=== PATIENT | female | born 1975 | race Caucasian/White ===

== ENCOUNTER 2017-08-13 14:15 | Inpatient (IN) | payer OTHER ==
[2017-08-13 16:15] VITALS: BMI 20.9
--- NOTE | 2017-08-13 17:10 | HP ---
COWS - Scale Resting Pulse: 1= [place] 81-100 Sweatin= Chills/Flushing Restless Observation: 1= Difficult to Sit Still Pupil Size: 1= Pupils >than Normal Bone or Joint Aches: 1= Mild Discomfort Runny Nose/ Eye Tearin= Runny Nose/Eyes GI Upset > 30mins: 3= Vomiting/Diarrhea Tremor Observation: 2= Slight Tremor Visible Yawning Observation: 1= 1-2x During Session Anxiety or Irritability: 2=Irritable/Anxious Goose Flesh Skin: 3=Piloerection COWS Score: 18 Admission ROS [facility] Chief Complaint: opioid withdrawal sx Allergies/Adverse Reactions: Allergies Allergy/AdvReac Type Severity Reaction Status Date / Time No Known Allergies Allergy Verified 08/13/17 16:38 History of Present Illness: 42 yo f repoerts taking oxycodoen/oxycontine, /oercicets [facility] [place] her went to the medical center so she is taking this opportunity to detox from opioid beaseu of severe withdrawal sx as an inpatient. first episode of treatment. PMHX anxiety, depression and insomnia thirsty, s/p breast surgery , s/p bresat lift this week on antibioitics. occasional smokng of cigarrettes Exam Limitations: No Limitations - Ebola screening Have you traveled outside of the country in the last 21 days: No Have you had contact with anyone from an Ebola affected area: No Have you been sick,other than usual withdrawal symptoms: No Do you have a fever: No - Review of Systems Constitutional: Chills, Diaphoresis, Night Sweats, Changes in sleep, Unintentional Wgt. Loss EENT: reports: Tearing, Nose Congestion Respiratory: reports: No Symptoms reported Cardiac: reports: No Symptoms Reported GI: reports: Diarrhea, Nausea, Poor Appetite, Poor Fluid Intake, Vomiting, Indigestion, Abdominal cramping : reports: No Symptoms Reported Musculoskeletal: reports: Back Pain, Joint Pain, Muscle Pain Integumentary: reports: Flushing, Sweating Neuro: reports: Headache, Tremors Endocrine: reports: Increased Thirst Psychiatric: reports: Judgement Intact, Mood/Affect Appropiate, Orientated x3, Anxious, Depressed Other Systems: Reviewed and Negative Patient History - Patient Medical History Hx Anemia: No Hx Asthma: No Hx Chronic Obstructive Pulmonary Disease (COPD): No Hx Cancer: No Hx Cardiac Disorders: No Hx Congestive Heart Failure: No Hx Hypertension: No Hx Hypercholesterolemia: No Hx Pacemaker: No HX Cerebrovascular Accident: No Hx Seizures: No Hx Dementia: No Hx Diabetes: No Hx Gastrointestinal Disorders: No Hx Genitourinary Disorders: No Hx Sexually Transmitted Disorders: No Hx Renal Disease (ESRD): No Hx Thyroid Disease: No Hx Human Immunodeficiency Virus (HIV): No Hx Hepatitis C: No Hx Depression: Yes Hx Suicide Attempt: No (no si at thsi time) Hx Bipolar Disorder: Yes Hx Schizophrenia: No - Patient Surgical History Past Surgical History: Yes Hx Neurologic Surgery: No Hx Cataract Extraction: No Hx Cardiac Surgery: No Hx Lung Surgery: No Hx Breast Surgery: Yes (COSMETIC - 08/10/17, was on antiiotics) Hx Breast Biopsy: No Hx Abdominal Surgery: No Hx Appendectomy: No Hx Cholecystectomy: No Hx Genitourinary Surgery: No Hx Section: No Hx Orthopedic Surgery: No Hx Hysterectomy: No Anesthesia Reaction: No - PPD History Previous Implant?: Yes Documented Results: Negative w/o proof PPD to be Administered?: Yes - Reproductive History Patient is a Female of Child Bearing Age (11 -55 yrs old): Yes Patient : No - Smoking Cessation Smoking history: Current every day smoker Have you smoked in the past 12 months: Yes Aproximately how many cigarettes per day: 5 Hx Chewing Tobacco Use: No Initiated information on smoking cessation: Yes 'Breaking Loose' booklet given: 08/13/17 - Substance & Tx. History Hx Alcohol Use: No Hx Substance Use: Yes Substance Use Type: Opiates, Prescribed Hx Substance Use Treatment: Yes (first episode) - Substances Abused Percocet Route: Oral Frequency: Daily Amount used: 80mg Age of first use: 40 Date of Last Use: 08/13/17 Oxycodone Route: Oral Frequency: Daily Amount used: 80mg Age of first use: 40 Date of Last Use: 08/12/17 Family Disease History - Family Disease History Family Disease History: Other: Father (h/o suicde or od, heroin) Admission Physical Exam BHS - Vital Signs Vital Signs: Vital Signs - 24 hr 08/13/17 16:14 Temperature 97 F L Pulse Rate 90 Respiratory 18 Rate Blood Pressure 139/88 - Physical General Appearance: Yes: Nourished, Appropriately Dressed, Disheveled, Mild Distress, Thin, Tremorous, Irritable, Sweating, Anxious HEENTM: Yes: EOMI, Hearing grossly Normal, Normocephalic, Normal Voice, [place], Pharynx Normal, Nasal Congestion, Rhinorrhea Respiratory: Yes: Within Normal Limits, Chest Non-Tender, Lungs Clear, Normal Breath Sounds, No Respiratory Distress, No Accessory Muscle Use Neck: Yes: Within Normal Limits, No masses,lesions,Nodules, Supple, Trachea in good position Breast: Yes: Breast Exam Deferred Cardiology: Yes: Within Normal Limits, Regular Rhythm, Regular Rate, S1, S2 Abdominal: Yes: Within Normal Limits, Normal Bowel Sounds, Non Tender, Flat, Soft, Increased Bowel Sounds Genitourinary: Yes: Within Normal Limits Back: Yes: Normal Inspection, Muscle Spasm Musculoskeletal: Yes: full range of Motion, Gait Steady, Pelvis Stable, Back pain, Muscle Pain Extremities: Yes: Normal Capillary Refill, Normal Range of Motion, Non-Tender, Tremors Neurological: Yes: entry level finance II-XII NML intact, Fully Oriented, Alert, Motor Strength 5/5, Normal Response, Depressed Affect Integumentary: Yes: Normal Color, Warm, Diaphoresis, Moist Lymphatic: Yes: Within Normal Limits - Addiitonal Findings: withdrawal - Diagnostic (1) Opioid dependence with withdrawal Current Visit: Yes Status: Acute (2) Dehydration Current Visit: Yes Status: Acute (3) Bipolar 1 disorder Current Visit: Yes Status: Acute (4) Insomnia Current Visit: Yes Status: Acute (5) Weight loss Current Visit: Yes Status: Acute BHS Breath Alcohol Content Breath Alcohol Content: 0 Urine Pregancy Test - Result Urine Test Results: Negative- NO Line Present Urine Drug Screen - Results Drug Screen Negative: No Urine Drug Screen Results: TCA-Tricyclic Antidepress, OXY-Oxycodone
[2017-08-13] MEDS ORDERED: P-EPHED 60MG/TRIPROLIDI 2.5MG TABLET PO PRN (17:12)
[2017-08-13] MEDS ORDERED: MAGNESIUM CITRATE 300 ML BOTTLE PO PRN (17:12)
[2017-08-13] MEDS ORDERED: MENTHOL/PHENOL 1 EACH UD MM PRN (17:12)
[2017-08-13] MEDS ORDERED: IBUPROFEN 400 MG TABLET (FP) PO PRN (17:12)
[2017-08-13] MEDS ORDERED: LOPERAMIDE HCL 2 MG CAPSULE PO PRN (17:12)
[2017-08-13] MEDS ORDERED: guaiFENesin/D-METHORPHAN HB 10 ML UNIT-DOSE CUPS PO PRN (17:12)
[2017-08-13] MEDS ORDERED: METHADONE HCL 10 MG TABLET (FOR DETOX USE ONLY) PO ONE ×2 (17:12→23:00)
[2017-08-13] MEDS ORDERED: MAG HYDROX/AL HYDROX/SIMETH 30 ML UNIT-DOSE CUP PO PRN (17:12)
[2017-08-13] MEDS ORDERED: NICOTINE POLACRILEX 2 MG GUM BC PRN (17:12)
[2017-08-13] MEDS ORDERED: ONDANSETRON *ODT* 4 MG TABLET SL ONE (17:15)
[2017-08-13] MEDS: NICOTINE 7 MG/24 HOURS TOPICAL PATCH TD SCH (18:48)
[2017-08-13] MEDS: PANTOPRAZOLE 40 MG TABLET (FP) PO SCH (18:50)
[2017-08-13] MEDS: diazePAM 5 MG TABLET PO PRN (18:50)
[2017-08-13] MEDS: CYCLOBENZAPRINE HCL 10 MG TABLET (FP) PO SCH (22:11)
[2017-08-13] MEDS: THIAMINE HCL 100 MG TABLET (FP) PO SCH (22:11)
[2017-08-13] MEDS: MELATONIN 5 MG TABLETS PO PRN (22:11)
[2017-08-13] MEDS: NAPROXEN 500 MG TABLET (FP) PO SCH (22:11)
[2017-08-13] MEDS: cloNIDine HCL 0.1 MG TABLET PO SCH (22:11)
[2017-08-14 01:27] LABS: URINE APPEARANCE CLEAR; URINE BILIRUBIN NEGATIVE (<2.0 mg/dL); URINE BLOOD NEGATIVE (NEGATIVE); URINE COLOR STRAW; URINE GLUCOSE (UA) NEGATIVE (NEGATIVE); URINE KETONE NEGATIVE (NEGATIVE); URINE LEUK ESTERASE NEGATIVE (NEGATIVE); URINE NITRITE NEGATIVE (NEGATIVE); URINE PROTEIN NEGATIVE (NEGATIVE); URINE UROBILINOGEN NEGATIVE mg/dL (0.2-1.0)
[2017-08-14] MEDS: diazePAM 5 MG TABLET PO PRN ×5 (01:40→19:49)
[2017-08-14] MEDS: ACETAMINOPHEN 325 MG TABLET (FP) PO PRN ×4 (01:41→19:45)
[2017-08-14] MEDS: CYCLOBENZAPRINE HCL 10 MG TABLET (FP) PO SCH ×3 (06:24→22:32)
[2017-08-14] MEDS ORDERED: METHADONE HCL 10 MG TABLET (FOR DETOX USE ONLY) PO ONE (10:00)
--- NOTE | 2017-08-14 10:09 | EKG ---
Test Reason : Blood Pressure : / mmHG Vent. Rate : 093 BPM Atrial Rate : 093 BPM P-R Int : 142 ms QRS Dur : 070 ms QT Int : 358 ms P-R-T Axes : 064 079 055 degrees QTc Int : 445 ms NORMAL SINUS RHYTHM NORMAL ECG NO PREVIOUS ECGS AVAILABLE Confirmed by ARPAN RUVALCABA MD ([id number]) on 08/14/2017 10:08:24 AM Referred By: Confirmed By:ARPAN RUVALCABA MD
[2017-08-14] MEDS: NAPROXEN 500 MG TABLET (FP) PO SCH ×2 (10:20→22:32)
[2017-08-14] MEDS: PRENATAL VITAMINS W/ FOLIC ACID TABLET (FP) PO SCH (10:20)
[2017-08-14] MEDS: PANTOPRAZOLE 40 MG TABLET (FP) PO SCH (10:20)
[2017-08-14] MEDS: cloNIDine HCL 0.1 MG TABLET PO SCH ×2 (10:22→22:33)
[2017-08-14] MEDS: NICOTINE 7 MG/24 HOURS TOPICAL PATCH TD SCH (10:22)
[2017-08-14 10:28] LABS: ALBUMIN 2.9 g/dl (3.4-5.0); ANION GAP 10 (8-16); BLOOD UREA NITROGEN 14 mg/dL (7-18); CALCIUM 8.3 mg/dL (8.5-10.1); CHLORIDE 105 mmol/L (98-107); CO2 26 mmol/L (21-32); GLUCOSE,RANDOM 106 mg/dL (74-106); POTASSIUM 3.8 mmol/L (3.5-5.1); SODIUM 141 mmol/L (136-145)
[2017-08-14 10:30] LABS: HEMATOCRIT 30.5 % (32.4-45.2); HEMOGLOBIN 10.3 GM/dL (10.7-15.3); MCH 31.8 pg (25.7-33.7); MCHC 33.7 g/dl (32.0-36.0); MEAN CELL VOLUME 94.5 fl (80-96); MEAN PLT VOLUME 9.8 fl (7.5-11.1); PLATELET COUNT 226 K/MM3 (134-434); RBC 3.22 M/mm3 (3.60-5.2); RDW 12.7 % (11.6-15.6); WHITE BLOOD COUNT 7.2 K/mm3 (4.0-10.0)
[2017-08-14 10:32] LABS: ALK PHOS 68 U/L (45-117); BILIRUBIN,TOTAL 0.1 mg/dL (0.2-1.0); CREATININE 0.5 mg/dL (0.55-1.02); SGOT/AST 15 U/L (15-37); SGPT/ALT 16 U/L (12-78); TOT PROT 5.7 g/dl (6.4-8.2)
--- NOTE | 2017-08-14 10:42 | PN ---
BHS COWS - Scale Resting Pulse: 1= [place] 81-100 Sweatin= Chills/Flushing Restless Observation: 1= Difficult to Sit Still Pupil Size: 1= Pupils >than Normal Bone or Joint Aches: 2= Severe Diffuse Aches Runny Nose/ Eye Tearin= Nasal Congestion GI Upset > 30mins: 2= Nausea/Diarrhea Tremor Observation of Outstretched Hands: 1= Tremor [place], Not Seen Yawning Observation: 0= None Anxiety or Irritability: 1=Feels Anxious/Irritable Goose Flesh Skin: 0=Smooth Skin COWS Score: 11 BHS Progress Note (SOAP) Subjective: interrupted sleep, sweats, shakes, nausea, bodyaches Objective: 08/14/17 10:38 Vital Signs Temperature 97.5 F L 08/14/17 06:00 Pulse Rate 77 08/14/17 06:00 Respiratory Rate 18 08/14/17 06:00 Blood Pressure 100/61 08/14/17 06:00 O2 Sat by Pulse Oximetry (%) Laboratory Tests 08/14/17 08/14/17 00:35 08:00 Sodium 141 Potassium 3.8 Chloride 105 Carbon Dioxide 26 Anion Gap 10 BUN 14 Creatinine 0.5 L Creat Clearance w eGFR > 60 Random Glucose 106 Calcium 8.3 L Total Bilirubin 0.1 L AST 15 ALT 16 Alkaline Phosphatase 68 Total Protein 5.7 L Albumin 2.9 L Urine Color Straw Urine Appearance Clear Urine pH 7.0 Ur Specific [place] 1.005 Urine Protein Negative Urine Glucose (UA) Negative Urine Ketones Negative Urine Blood Negative Urine Nitrite Negative Urine Bilirubin Negative Urine Urobilinogen Negative Ur Leukocyte Esterase Negative pt aox3 sitting up in bed eatting breakfast ad breast bandages over areolar Assessment: 08/14/17 10:40 withdrawal sxs ad breast augmentation Plan: cont. detox increase fluids motrin prn report any d/c, redness or pain from breast immediately
--- NOTE | 2017-08-14 19:54 | CONSULT ---
[facility] Psychiatric Consult - Data Date of interview: 08/14/17 Admission source: [facility] Identifying data: First admission to [facility] for this 42 y/o [place] female seeking detox treatment on for opiate dependence.Patient is single,a mother of one,homeless,unemployed and supported on SSI benefits. Substance Abuse History: Patient admits to heavy history of percocet abuse. Details in current [facility] report as shown in the following : Smoking history: Current every day smoker. Have you smoked in the past 12 months: Yes. Aproximately how many cigarettes per day: 5. Hx Chewing Tobacco Use: No. Initiated information on smoking cessation: Yes. 'Breaking Loose' booklet given : 08/13/17. - Substance & Tx. History. Hx Alcohol Use: No. Hx Substance Use: Yes. Substance Use Type: Opiates, Prescribed. Hx Substance Use Treatment: Yes (first episode). - Substances Abused. Percocet. Route: Oral. Frequency: Daily. Amount used: 80mg. Age of first use: 40. Date of Last Use: 08/13/17. Oxycodone. Route: Oral. Frequency: Daily. Amount used: 80mg. Age of first use: 40. Date of Last Use: 08/12/17 Medical History: GERD and a recent history of cosmetic surgery (breast) on . Psychiatric History: Patient denies history of psychiatric hospitalizations.Used to see a psychiatrist at the [facility] OPD clinic.Last seen there 3-4 months ago.Totally lost to follow-up.Ms Montero indicates that she " used to be " prescribed seroquel,depakote and sertraline.Diagnosis endorsed : MDD.Patient denies history of suicide attempts. Physical/Sexual Abuse/Trauma History: Patient denies history of abuse. Additional Comment: Urine Drug Screen Results: TCA-Tricyclic Antidepressant, OXY -Oxycodone.Noted. Mental Status Exam - Mental Status Exam Alert and Oriented to: Time, Place, Person Cognitive Function: Good Patient Appearance: Well Groomed Mood: Nervous, Anxious Affect: Mood Congruent Patient Behavior: Fatigued, Appropriate, Cooperative Speech Pattern: Clear (chinese-speaking) Voice Loudness: Normal Thought Process: Intact, Goal Oriented Thought Disorder: Not Present Hallucinations: Denies Suicidal Ideation: Denies Homicidal Ideation: Denies Insight/Judgement: Poor Sleep: Poorly, Difficulty falling asleep Appetite: Fair Muscle strength/Tone: Normal Gait/Station: Normal Psychiatric Findings - Problem List ([place] 1, 2,3) (1) Opioid dependence with withdrawal Current Visit: Yes Status: Acute (2) Nicotine dependence Current Visit: Yes Status: Acute (3) Insomnia Current Visit: Yes Status: Acute (4) Bipolar disorder Current Visit: No Status: Chronic Comment: As per self-report.Off medications for months. - Initial Treatment Plan Initial Treatment Plan: Psychoeducation.Detoxification in progress.Sleep hygiene.Will resume seroquel at the dose of 50 mg po hs to address insomnia ( patient's specific request).Side effects/benefits discussed with the patient.Consent given (verbal).Observation.Patient is advised to resume OPD care with [facility].
[2017-08-14] MEDS: hydrOXYzine PAMOATE 50 MG CAPSULE (FP) PO PRN (22:32)
[2017-08-14] MEDS: QUEtiapine FUMARATE 50 MG TABLET PO SCH (22:32)
[2017-08-14] MEDS: THIAMINE HCL 100 MG TABLET (FP) PO SCH (22:32)
[2017-08-14] MEDS: MELATONIN 5 MG TABLETS PO PRN (22:33)
[2017-08-15] MEDS: diazePAM 5 MG TABLET PO PRN ×5 (00:46→22:20)
[2017-08-15] MEDS: ACETAMINOPHEN 325 MG TABLET (FP) PO PRN (00:48)
[2017-08-15] MEDS: CYCLOBENZAPRINE HCL 10 MG TABLET (FP) PO SCH ×3 (06:42→22:20)
[2017-08-15] MEDS ORDERED: METHADONE HCL 5 MG TABLET (FOR DETOX USE ONLY) PO ONE (10:00)
[2017-08-15] MEDS: NAPROXEN 500 MG TABLET (FP) PO SCH (10:29)
[2017-08-15] MEDS: PANTOPRAZOLE 40 MG TABLET (FP) PO SCH (10:29)
[2017-08-15] MEDS: NICOTINE 7 MG/24 HOURS TOPICAL PATCH TD SCH (10:29)
[2017-08-15] MEDS: cloNIDine HCL 0.1 MG TABLET PO SCH ×2 (10:29→22:20)
[2017-08-15] MEDS: PRENATAL VITAMINS W/ FOLIC ACID TABLET (FP) PO SCH (10:29)
[2017-08-15] MEDS ORDERED: IBUPROFEN 400 MG TABLET (FP) PO PRN (12:06)
[2017-08-15] MEDS: CEPHALEXIN MONOHYDRATE 500 MG CAPSULE (UD) PO SCH ×2 (14:23→23:25)
--- NOTE | 2017-08-15 15:31 | PN ---
BHS COWS - Scale Resting Pulse: 0= [place] 80 or Below Sweatin= Chills/Flushing Restless Observation: 3= Extraneous Movement Pupil Size: 1= Pupils >than Normal Bone or Joint Aches: 2= Severe Diffuse Aches Runny Nose/ Eye Tearin= Runny Nose/Eyes GI Upset > 30mins: 3= Vomiting/Diarrhea Tremor Observation of Outstretched Hands: 2= Slight Tremor Visible Yawning Observation: 1= 1-2x During Session Anxiety or Irritability: 2=Irritable/Anxious Goose Flesh Skin: 0=Smooth Skin COWS Score: 17 S Progress Note (SOAP) Subjective: ALERT,IRRITABLE,ANXIOUS,INTERRUPTED SLEEP,TREMOR,PAIN IN THE BODY AND BACK, SWELLING WITH PAIN RIGHT AXILLA Objective: 08/15/17 15:30 Vital Signs Temperature 97.1 F L 08/15/17 15:17 Pulse Rate 78 08/15/17 15:17 Respiratory Rate 16 08/15/17 15:17 Blood Pressure 102/69 08/15/17 15:17 O2 Sat by Pulse Oximetry (%) Laboratory Last Values WBC 7.2 K/mm3 (4.0-10.0) 08/14/17 08:00 RBC 3.22 M/mm3 (3.60-5.2) L 08/14/17 08:00 Hgb 10.3 GM/dL (10.7-15.3) L 08/14/17 08:00 Hct 30.5 % (32.4-45.2) L 08/14/17 08:00 MCV 94.5 fl (80-96) 08/14/17 08:00 MCH 31.8 pg (25.7-33.7) 08/14/17 08:00 MCHC 33.7 g/dl (32.0-36.0) 08/14/17 08:00 RDW 12.7 % (11.6-15.6) 08/14/17 08:00 Plt Count 226 K/MM3 (134-434) 08/14/17 08:00 MPV 9.8 fl (7.5-11.1) 08/14/17 08:00 Sodium 141 mmol/L (136-145) 08/14/17 08:00 Potassium 3.8 mmol/L (3.5-5.1) 08/14/17 08:00 Chloride 105 mmol/L (98-107) 08/14/17 08:00 Carbon Dioxide 26 mmol/L (21-32) 08/14/17 08:00 Anion Gap 10 (8-16) 08/14/17 08:00 BUN 14 mg/dL (7-18) 08/14/17 08:00 Creatinine 0.5 mg/dL (0.55-1.02) L 08/14/17 08:00 Creat Clearance w eGFR > 60 (>60) 08/14/17 08:00 Random Glucose 106 mg/dL (74-106) 08/14/17 08:00 Calcium 8.3 mg/dL (8.5-10.1) L 08/14/17 08:00 Total Bilirubin 0.1 mg/dL (0.2-1.0) L 08/14/17 08:00 AST 15 U/L (15-37) 08/14/17 08:00 ALT 16 U/L (12-78) 08/14/17 08:00 Alkaline Phosphatase 68 U/L (45-117) 08/14/17 08:00 Total Protein 5.7 g/dl (6.4-8.2) L 08/14/17 08:00 Albumin 2.9 g/dl (3.4-5.0) L 08/14/17 08:00 Urine Color Straw 08/14/17 00:35 Urine Appearance Clear 08/14/17 00:35 Urine pH 7.0 (5.0-8.0) 08/14/17 00:35 Ur Specific [place] 1.005 (1.001-1.035) 08/14/17 00:35 Urine Protein Negative (NEGATIVE) 08/14/17 00:35 Urine Glucose (UA) Negative (NEGATIVE) 08/14/17 00:35 Urine Ketones Negative (NEGATIVE) 08/14/17 00:35 Urine Blood Negative (NEGATIVE) 08/14/17 00:35 Urine Nitrite Negative (NEGATIVE) 08/14/17 00:35 Urine Bilirubin Negative (<2.0 mg/dL) 08/14/17 00:35 Urine Urobilinogen Negative mg/dL (0.2-1.0) 08/14/17 00:35 Ur Leukocyte Esterase Negative (NEGATIVE) 08/14/17 00:35 RPR Titer Nonreactive (NONREACTIVE) 08/14/17 08:00 HIV 1&2 Antibody Screen Negative 08/14/17 07:00 HIV P24 Antigen Negative 08/14/17 07:00 Assessment: 08/15/17 15:31 WITHDRAWAL SYMPTOM Plan: CONTINUE DETOX
--- NOTE | 2017-08-15 15:37 | PN ---
S Progress Note Note: PLEASE DISCARD THE SWELLING OF RIGHT AXILLA AND ABSCESS OF RIGHT AXILLA BELONG TO OTHER PATIENT PATIENT HAS COSMATIC SURGERY BOTH BREASTS
[2017-08-15] MEDS: MELATONIN 5 MG TABLETS PO PRN (22:20)
[2017-08-15] MEDS: QUEtiapine FUMARATE 50 MG TABLET PO SCH (22:20)
[2017-08-15] MEDS: THIAMINE HCL 100 MG TABLET (FP) PO SCH (22:20)
[2017-08-16] MEDS: CYCLOBENZAPRINE HCL 10 MG TABLET (FP) PO SCH ×3 (06:38→22:22)
[2017-08-16] MEDS: CEPHALEXIN MONOHYDRATE 500 MG CAPSULE (UD) PO SCH ×3 (06:38→22:22)
[2017-08-16] MEDS: diazePAM 5 MG TABLET PO PRN ×2 (06:41→15:42)
[2017-08-16] MEDS ORDERED: METHADONE HCL 5 MG TABLET (FOR DETOX USE ONLY) PO ONE (10:00)
[2017-08-16] MEDS: PANTOPRAZOLE 40 MG TABLET (FP) PO SCH (10:12)
[2017-08-16] MEDS: NICOTINE 7 MG/24 HOURS TOPICAL PATCH TD SCH (10:12)
[2017-08-16] MEDS: PRENATAL VITAMINS W/ FOLIC ACID TABLET (FP) PO SCH (10:12)
[2017-08-16] MEDS: cloNIDine HCL 0.1 MG TABLET PO SCH ×2 (10:12→22:22)
--- NOTE | 2017-08-16 14:16 | PN ---
BHS Progress Note (SOAP) Subjective: joint pain muscle ache sweat tremor restlessness trouble sleeping anxiety Objective: 08/16/17 14:15 Vital Signs Temperature 97.7 F 08/16/17 13:18 Pulse Rate 79 08/16/17 13:18 Respiratory Rate 20 08/16/17 13:18 Blood Pressure 106/74 08/16/17 13:18 O2 Sat by Pulse Oximetry (%) Laboratory Last Values WBC 7.2 K/mm3 (4.0-10.0) 08/14/17 08:00 RBC 3.22 M/mm3 (3.60-5.2) L 08/14/17 08:00 Hgb 10.3 GM/dL (10.7-15.3) L 08/14/17 08:00 Hct 30.5 % (32.4-45.2) L 08/14/17 08:00 MCV 94.5 fl (80-96) 08/14/17 08:00 MCH 31.8 pg (25.7-33.7) 08/14/17 08:00 MCHC 33.7 g/dl (32.0-36.0) 08/14/17 08:00 RDW 12.7 % (11.6-15.6) 08/14/17 08:00 Plt Count 226 K/MM3 (134-434) 08/14/17 08:00 MPV 9.8 fl (7.5-11.1) 08/14/17 08:00 Sodium 141 mmol/L (136-145) 08/14/17 08:00 Potassium 3.8 mmol/L (3.5-5.1) 08/14/17 08:00 Chloride 105 mmol/L (98-107) 08/14/17 08:00 Carbon Dioxide 26 mmol/L (21-32) 08/14/17 08:00 Anion Gap 10 (8-16) 08/14/17 08:00 BUN 14 mg/dL (7-18) 08/14/17 08:00 Creatinine 0.5 mg/dL (0.55-1.02) L 08/14/17 08:00 Creat Clearance w eGFR > 60 (>60) 08/14/17 08:00 Random Glucose 106 mg/dL (74-106) 08/14/17 08:00 Calcium 8.3 mg/dL (8.5-10.1) L 08/14/17 08:00 Total Bilirubin 0.1 mg/dL (0.2-1.0) L 08/14/17 08:00 AST 15 U/L (15-37) 08/14/17 08:00 ALT 16 U/L (12-78) 08/14/17 08:00 Alkaline Phosphatase 68 U/L (45-117) 08/14/17 08:00 Total Protein 5.7 g/dl (6.4-8.2) L 08/14/17 08:00 Albumin 2.9 g/dl (3.4-5.0) L 08/14/17 08:00 Urine Color Straw 08/14/17 00:35 Urine Appearance Clear 08/14/17 00:35 Urine pH 7.0 (5.0-8.0) 08/14/17 00:35 Ur Specific [place] 1.005 (1.001-1.035) 08/14/17 00:35 Urine Protein Negative (NEGATIVE) 08/14/17 00:35 Urine Glucose (UA) Negative (NEGATIVE) 08/14/17 00:35 Urine Ketones Negative (NEGATIVE) 08/14/17 00:35 Urine Blood Negative (NEGATIVE) 08/14/17 00:35 Urine Nitrite Negative (NEGATIVE) 08/14/17 00:35 Urine Bilirubin Negative (<2.0 mg/dL) 08/14/17 00:35 Urine Urobilinogen Negative mg/dL (0.2-1.0) 08/14/17 00:35 Ur Leukocyte Esterase Negative (NEGATIVE) 08/14/17 00:35 RPR Titer Nonreactive (NONREACTIVE) 08/14/17 08:00 HIV 1&2 Antibody Screen Negative 08/14/17 07:00 HIV P24 Antigen Negative 08/14/17 07:00 lab noted Assessment: 08/16/17 14:15 withdrawal sx Plan: continue detox
[2017-08-16] MEDS: ACETAMINOPHEN 325 MG TABLET (FP) PO PRN (15:47)
[2017-08-16] MEDS: hydrOXYzine PAMOATE 50 MG CAPSULE (FP) PO PRN (18:12)
[2017-08-16] MEDS: THIAMINE HCL 100 MG TABLET (FP) PO SCH (22:22)
[2017-08-16] MEDS: MELATONIN 5 MG TABLETS PO PRN (22:22)
[2017-08-16] MEDS: QUEtiapine FUMARATE 50 MG TABLET PO SCH (22:22)
[2017-08-16] MEDS: MAGNESIUM HYDROX 2400MG/30ML ORAL SUSPENSION 30 ML CUP PO PRN (22:42)
[2017-08-17] MEDS: MAGNESIUM HYDROX 2400MG/30ML ORAL SUSPENSION 30 ML CUP PO PRN (04:36)
[2017-08-17] MEDS: CEPHALEXIN MONOHYDRATE 500 MG CAPSULE (UD) PO SCH ×3 (05:23→22:21)
[2017-08-17] MEDS: CYCLOBENZAPRINE HCL 10 MG TABLET (FP) PO SCH ×3 (05:23→22:21)
[2017-08-17] MEDS ORDERED: SODIUM PHOSPHATE/NA BIPHOS 133 ML ENEMA PR ONE (08:49)
[2017-08-17] MEDS ORDERED: METHADONE HCL 10 MG TABLET (FOR DETOX USE ONLY) PO ONE (10:00)
--- NOTE | 2017-08-17 10:39 | PN ---
S Progress Note (SOAP) Subjective: reported feeling better, no body ache sleep throughout the night constipation x days, denies nausea no vomiting appetites as usual Objective: 08/17/17 10:33 Vital Signs Temperature 99.1 F 08/17/17 09:13 Pulse Rate 95 H 08/17/17 09:13 Respiratory Rate 18 08/17/17 09:13 Blood Pressure 109/67 08/17/17 09:13 O2 Sat by Pulse Oximetry (%) Laboratory Last Values WBC 7.2 K/mm3 (4.0-10.0) 08/14/17 08:00 RBC 3.22 M/mm3 (3.60-5.2) L 08/14/17 08:00 Hgb 10.3 GM/dL (10.7-15.3) L 08/14/17 08:00 Hct 30.5 % (32.4-45.2) L 08/14/17 08:00 MCV 94.5 fl (80-96) 08/14/17 08:00 MCH 31.8 pg (25.7-33.7) 08/14/17 08:00 MCHC 33.7 g/dl (32.0-36.0) 08/14/17 08:00 RDW 12.7 % (11.6-15.6) 08/14/17 08:00 Plt Count 226 K/MM3 (134-434) 08/14/17 08:00 MPV 9.8 fl (7.5-11.1) 08/14/17 08:00 Sodium 141 mmol/L (136-145) 08/14/17 08:00 Potassium 3.8 mmol/L (3.5-5.1) 08/14/17 08:00 Chloride 105 mmol/L (98-107) 08/14/17 08:00 Carbon Dioxide 26 mmol/L (21-32) 08/14/17 08:00 Anion Gap 10 (8-16) 08/14/17 08:00 BUN 14 mg/dL (7-18) 08/14/17 08:00 Creatinine 0.5 mg/dL (0.55-1.02) L 08/14/17 08:00 Creat Clearance w eGFR > 60 (>60) 08/14/17 08:00 Random Glucose 106 mg/dL (74-106) 08/14/17 08:00 Calcium 8.3 mg/dL (8.5-10.1) L 08/14/17 08:00 Total Bilirubin 0.1 mg/dL (0.2-1.0) L 08/14/17 08:00 AST 15 U/L (15-37) 08/14/17 08:00 ALT 16 U/L (12-78) 08/14/17 08:00 Alkaline Phosphatase 68 U/L (45-117) 08/14/17 08:00 Total Protein 5.7 g/dl (6.4-8.2) L 08/14/17 08:00 Albumin 2.9 g/dl (3.4-5.0) L 08/14/17 08:00 Urine Color Straw 08/14/17 00:35 Urine Appearance Clear 08/14/17 00:35 Urine pH 7.0 (5.0-8.0) 08/14/17 00:35 Ur Specific [place] 1.005 (1.001-1.035) 08/14/17 00:35 Urine Protein Negative (NEGATIVE) 08/14/17 00:35 Urine Glucose (UA) Negative (NEGATIVE) 08/14/17 00:35 Urine Ketones Negative (NEGATIVE) 08/14/17 00:35 Urine Blood Negative (NEGATIVE) 08/14/17 00:35 Urine Nitrite Negative (NEGATIVE) 08/14/17 00:35 Urine Bilirubin Negative (<2.0 mg/dL) 08/14/17 00:35 Urine Urobilinogen Negative mg/dL (0.2-1.0) 08/14/17 00:35 Ur Leukocyte Esterase Negative (NEGATIVE) 08/14/17 00:35 RPR Titer Nonreactive (NONREACTIVE) 08/14/17 08:00 HIV 1&2 Antibody Screen Negative 08/14/17 07:00 HIV P24 Antigen Negative 08/14/17 07:00 lab noted continue MOM as needed abdomen soft non tenderness, + bowel sound x 4, denies back pain, ambulating on mun[address] way freely, social with peers 08/17/17 10:39 Assessment: 08/17/17 10:40 mild opiate withdrawal sx constipation Plan: medically supervised detox continue MOM prn enema x 1 patient tolerated well, encourage clear liquid x 4 hours increase oral fluid continue monitoring
[2017-08-17] MEDS: NICOTINE 7 MG/24 HOURS TOPICAL PATCH TD SCH (10:51)
[2017-08-17] MEDS: PRENATAL VITAMINS W/ FOLIC ACID TABLET (FP) PO SCH (10:52)
[2017-08-17] MEDS: PANTOPRAZOLE 40 MG TABLET (FP) PO SCH (10:52)
[2017-08-17] MEDS: cloNIDine HCL 0.1 MG TABLET PO SCH ×2 (10:52→22:21)
[2017-08-17] MEDS: hydrOXYzine PAMOATE 50 MG CAPSULE (FP) PO PRN ×2 (13:25→22:21)
[2017-08-17] MEDS: THIAMINE HCL 100 MG TABLET (FP) PO SCH (22:20)
[2017-08-17] MEDS: QUEtiapine FUMARATE 50 MG TABLET PO SCH (22:21)
[2017-08-17] MEDS: ACETAMINOPHEN 325 MG TABLET (FP) PO PRN (22:21)
[2017-08-18] MEDS: CEPHALEXIN MONOHYDRATE 500 MG CAPSULE (UD) PO SCH (05:47)
[2017-08-18] MEDS: CYCLOBENZAPRINE HCL 10 MG TABLET (FP) PO SCH (05:47)
[2017-08-18] MEDS ORDERED: METHADONE HCL 5 MG TABLET (FOR DETOX USE ONLY) PO ONE (06:00)
[2017-08-18 06:12] VITALS: BP 98/61; PULSE 86; TEMP 96.8
--- NOTE | 2017-08-18 09:51 | PN ---
S Progress Note (SOAP) Subjective: ALERT,NO COMPLAINT Objective: 08/18/17 09:49 Vital Signs Temperature 96.8 F L 08/18/17 06:00 Pulse Rate 86 08/18/17 06:00 Respiratory Rate 16 08/18/17 06:00 Blood Pressure 98/61 08/18/17 06:00 O2 Sat by Pulse Oximetry (%) Assessment: 08/18/17 09:49 DETOX COMPLETED,NO WITHDRAWAL SYMPTOM Plan: DISCHARGE TODAY,FOLLOW UP WITH AFTER CARE PROGRAM ARRANGEMENT
--- NOTE | 2017-08-18 09:55 | DS ---
[facility] Detox Discharge Summary Admission Date: 08/13/17 Discharge Date: 08/18/17 - History Present History: Opioid Dependence Additional Comments: FOLLOW UP WITH AFTER CARE PROGRAM ARRANGEMENT Pertinent Past History: S/P BILATERAL BREAST IMPLANT BIPOLAR DISORDER - Physical Exam Results Vital Signs: Vital Signs Temperature 96.8 F L 08/18/17 06:00 Pulse Rate 86 08/18/17 06:00 Respiratory Rate 16 08/18/17 06:00 Blood Pressure 98/61 08/18/17 06:00 O2 Sat by Pulse Oximetry (%) Pertinent Admission Physical Exam Findings: WITHDRAWAL SIGNS AND SYMPTOM Vital Signs Temperature 96.8 F L 08/18/17 06:00 Pulse Rate 86 08/18/17 06:00 Respiratory Rate 16 08/18/17 06:00 Blood Pressure 98/61 08/18/17 06:00 O2 Sat by Pulse Oximetry (%) Laboratory Last Values WBC 7.2 K/mm3 (4.0-10.0) 08/14/17 08:00 RBC 3.22 M/mm3 (3.60-5.2) L 08/14/17 08:00 Hgb 10.3 GM/dL (10.7-15.3) L 08/14/17 08:00 Hct 30.5 % (32.4-45.2) L 08/14/17 08:00 MCV 94.5 fl (80-96) 08/14/17 08:00 MCH 31.8 pg (25.7-33.7) 08/14/17 08:00 MCHC 33.7 g/dl (32.0-36.0) 08/14/17 08:00 RDW 12.7 % (11.6-15.6) 08/14/17 08:00 Plt Count 226 K/MM3 (134-434) 08/14/17 08:00 MPV 9.8 fl (7.5-11.1) 08/14/17 08:00 Sodium 141 mmol/L (136-145) 08/14/17 08:00 Potassium 3.8 mmol/L (3.5-5.1) 08/14/17 08:00 Chloride 105 mmol/L (98-107) 08/14/17 08:00 Carbon Dioxide 26 mmol/L (21-32) 08/14/17 08:00 Anion Gap 10 (8-16) 08/14/17 08:00 BUN 14 mg/dL (7-18) 08/14/17 08:00 Creatinine 0.5 mg/dL (0.55-1.02) L 08/14/17 08:00 Creat Clearance w eGFR > 60 (>60) 08/14/17 08:00 Random Glucose 106 mg/dL (74-106) 08/14/17 08:00 Calcium 8.3 mg/dL (8.5-10.1) L 08/14/17 08:00 Total Bilirubin 0.1 mg/dL (0.2-1.0) L 08/14/17 08:00 AST 15 U/L (15-37) 08/14/17 08:00 ALT 16 U/L (12-78) 08/14/17 08:00 Alkaline Phosphatase 68 U/L (45-117) 08/14/17 08:00 Total Protein 5.7 g/dl (6.4-8.2) L 08/14/17 08:00 Albumin 2.9 g/dl (3.4-5.0) L 08/14/17 08:00 Urine Color Straw 08/14/17 00:35 Urine Appearance Clear 08/14/17 00:35 Urine pH 7.0 (5.0-8.0) 08/14/17 00:35 Ur Specific [place] 1.005 (1.001-1.035) 08/14/17 00:35 Urine Protein Negative (NEGATIVE) 08/14/17 00:35 Urine Glucose (UA) Negative (NEGATIVE) 08/14/17 00:35 Urine Ketones Negative (NEGATIVE) 08/14/17 00:35 Urine Blood Negative (NEGATIVE) 08/14/17 00:35 Urine Nitrite Negative (NEGATIVE) 08/14/17 00:35 Urine Bilirubin Negative (<2.0 mg/dL) 08/14/17 00:35 Urine Urobilinogen Negative mg/dL (0.2-1.0) 08/14/17 00:35 Ur Leukocyte Esterase Negative (NEGATIVE) 08/14/17 00:35 RPR Titer Nonreactive (NONREACTIVE) 08/14/17 08:00 HIV 1&2 Antibody Screen Negative 08/14/17 07:00 HIV P24 Antigen Negative 08/14/17 07:00 - Treatment Hospital Course: Detox Protocol Followed, Detoxed Safely, Responded well, Discharged Condition Good Patient has Accepted a Rehab Referral to: DECLINED - Medication Discharge Medications: Ambulatory Orders Divalproex [Depakote -] 500 mg PO BID 08/13/17 Ibuprofen [Motrin -] 800 mg PO TID 08/13/17 Sertraline HCl [Zoloft -] 50 mg PO DAILY 08/13/17 Zolpidem Tartrate [Ambien] 10 mg PO HS 08/13/17 - Diagnosis (1) Opioid dependence with withdrawal Current Visit: Yes Status: Acute (2) Weight loss Current Visit: Yes Status: Acute (3) H/O bilateral breast implants Current Visit: Yes Status: Acute (4) Bipolar 1 disorder Current Visit: Yes Status: Chronic - AMA Did Patient Leave Against Medical Advice: No
[2017-08-18] MEDS ORDERED: IBUPROFEN 600 MG TABLET (FP) PO PRN (10:13)
--- NOTE | 2017-08-18 10:22 | PN ---
[facility] Progress Note Note: PATIENT COMPLAINT OF CONSTIPATION USE TO TAKE SENNA 2 TABS PO AT NIGHT,E PRESCRIPTION FOR 20 TABS, PROTONIX 40 MGS PO DAILY FOR 10 DAYS AND MOTIRN 600 MGS PO Q 6 HRS PRN FOR PAIN 20 TABLET, FOLLOW UP WITH BREAST SURGEON ON Thursday08.20.17 APPOINTMENT
[2017-08-18] MEDS: cloNIDine HCL 0.1 MG TABLET PO SCH (10:49)
[2017-08-18] MEDS: PANTOPRAZOLE 40 MG TABLET (FP) PO SCH (10:49)
[2017-08-18] MEDS: NICOTINE 7 MG/24 HOURS TOPICAL PATCH TD SCH (10:49)
[2017-08-18] MEDS: PRENATAL VITAMINS W/ FOLIC ACID TABLET (FP) PO SCH (10:49)
[2017-08-18] MEDS ORDERED: SENNOSIDES 8.6MG TABLET (FP) PO SCH (22:00)
== END 2017-08-18 11:35 | disposition home or self-care (01) | DRG 773 ==
LOC: YASAS 14:15 → Y6N 17:16
PROVIDERS: ADMIT Internal Medicine; ATTEND Internal Medicine
PROC: HZ2ZZZZ Detoxification Services for Substance Abuse Treatment (ICD-10-PCS; principal; 2017-08-13)
DX: F11.23 Opioid dependence with withdrawal (principal); F17.210 Nicotine dependence, cigarettes, uncomplicated; F31.89 Other bipolar disorder; R63.4 Abnormal weight loss; Z68.20 Body mass index [BMI] 20.0-20.9, adult; Z98.82 Breast implant status
CPT/HCPCS: 36415; 80053; 81003; 85027; 86593; 87389; 93005; 93010; J0735; Q0162

== ENCOUNTER 2018-01-26 08:09 | Inpatient (IN) | payer OTHER ==
[2018-01-26 09:01] VITALS: BMI 22.1
--- NOTE | 2018-01-26 17:59 | HP ---
COWS - Scale Resting Pulse: 1= [place] 81-100 Sweatin= Chills/Flushing Restless Observation: 1= Difficult to Sit Still Pupil Size: 1= Pupils >than Normal Bone or Joint Aches: 1= Mild Discomfort Runny Nose/ Eye Tearin= Runny Nose/Eyes GI Upset > 30mins: 3= Vomiting/Diarrhea Tremor Observation: 1= Tremor [place], Not Seen Yawning Observation: 2= >3x During Session Anxiety or Irritability: 4=Extreme Anxiety Goose Flesh Skin: 0=Smooth Skin COWS Score: 17 CIWA Score - CIWA Score Nausea/Vomitin-Int. Nausea w/Dry Heave Muscle Tremors: 2 Anxiety: 4-Mod. Anxious/Guarded Agitation: 3 Paroxysmal Sweats: 2 Orientation: 0-Oriented Tacttile Disturbances: 1-Very Mild Itch/Numbness Auditory Disturbances: 0-None Visual Disturbances: 0-None Headache: 2-Mild CIWA-Ar Total Score: 18 Admission ROS BHS - HPI Chief Complaint: alcohol and opiod withdrawal symptoms Allergies/Adverse Reactions: Allergies Allergy/AdvReac Type Severity Reaction Status Date / Time No Known Allergies Allergy Verified 01/26/18 16:28 History of Present Illness: 42 yo female with hx of nicotine, oxycodone and alcohol dependence presents here for detox. Reports went to [facility] yesterday for withdrawal symptoms after drinking 57 percocets in the last three day. Last detox [facility] 08/13/17 - 08/18 reports after last detox maintained sobriety for three months and recently relapsed this past November 2017. Reports recently under went breast surgery revision December 2017. PMHX: insomnia, depression, insomnia. Reference #: [id number] Others' Prescriptions Patient Name: Kay Montero Date: 1975 Address: [address] [place] [address] Sex: Female Rx Written Rx Dispensed Drug Quantity Days Supply Prescriber Name 01/12/2018 01/18/2018 oxycodone-acetaminophen 5-325 mg tab 30 4 Lam Guadalupe MD 10/13/2017 01/12/2018 zolpidem tartrate 10 mg tablet 30 30 Owen Peña MD 10/13/2017 11/30/2017 zolpidem tartrate 10 mg tablet 30 30 Owen Peña MD 11/14/2017 11/14/2017 zolpidem tartrate 5 mg tablet 30 30 Tonya Nichols 10/13/2017 10/13/2017 zolpidem tartrate 10 mg tablet 30 30 Owen Peña MD 09/05/2017 09/05/2017 zolpidem tartrate 5 mg tablet 30 30 Fabby Bar MD 07/31/2017 08/10/2017 oxycodone-acetaminophen 5-325 mg tab 30 5 Lam Guadalupe MD Patient Name: Kay Montero Date: 1975 Address: [address] [place] [address] Sex: Female Rx Written Rx Dispensed Drug Quantity Days Supply Prescriber Name 05/20/2017 05/20/2017 oxycodone-acetaminophen 5-325 mg tab 30 5 Lam Guadalupe MD 05/13/2017 05/13/2017 oxycodone-acetaminophen 5-325 mg tab 30 3 Lam Guadalupe MD 04/30/2017 05/06/2017 oxycodone-acetaminophen 5-325 mg tab 30 3 Lam Guadalupe MD 05/01/2017 05/01/2017 oxycodone-acetaminophen 5-325 mg tab 9 3 [facility] Exam Limitations: No Limitations - Ebola screening Have you traveled outside of the country in the last 21 days: No Have you had contact with anyone from an Ebola affected area: No Have you been sick,other than usual withdrawal symptoms: No Do you have a fever: No - Review of Systems Constitutional: Chills, Diaphoresis, Loss of Appetite, Changes in sleep EENT: reports: Tearing, Other (runny nose) Respiratory: reports: No Symptoms reported Cardiac: reports: No Symptoms Reported GI: reports: Diarrhea, Nausea, Poor Appetite, Vomiting, Abdominal cramping : reports: No Symptoms Reported Musculoskeletal: reports: Back Pain, Joint Pain Integumentary: reports: No Symptoms Reported Neuro: reports: Headache Endocrine: reports: Increased Thirst Hematology: reports: No Symptoms Reported Psychiatric: reports: Orientated x3, Anxious, Depressed (upset son involve in gang) Other Systems: Reviewed and Negative Patient History - Patient Medical History Hx Anemia: No Hx Asthma: No Hx Chronic Obstructive Pulmonary Disease (COPD): No Hx Cancer: No Hx Cardiac Disorders: No Hx Congestive Heart Failure: No Hx Hypertension: No Hx Hypercholesterolemia: No Hx Pacemaker: No HX Cerebrovascular Accident: No Hx Seizures: No Hx Dementia: No Hx Diabetes: No Hx Gastrointestinal Disorders: No Hx Liver Disease: No Hx Genitourinary Disorders: No Hx Sexually Transmitted Disorders: No Hx Renal Disease (ESRD): No Hx Thyroid Disease: No Hx Human Immunodeficiency Virus (HIV): No Hx Hepatitis C: No Hx Depression: Yes Hx Suicide Attempt: No Hx Bipolar Disorder: Yes Hx Schizophrenia: No - Patient Surgical History Past Surgical History: Yes Hx Neurologic Surgery: No Hx Cataract Extraction: No Hx Cardiac Surgery: No Hx Lung Surgery: No Hx Breast Surgery: Yes (bilateral augmentation, 04/2017/bilateral lift, 01/19/2018 ) Hx Breast Biopsy: No Hx Abdominal Surgery: No Hx Appendectomy: No Hx Cholecystectomy: No Hx Genitourinary Surgery: No Hx Section: No Hx Orthopedic Surgery: No Hx Hysterectomy: No Anesthesia Reaction: No - PPD History Previous Implant?: Yes Documented Results: Negative w/proof Implanted On Prior [facility] Admission?: Yes Date: 08/15/17 Results: 0 mm PPD to be Administered?: Yes - Smoking Cessation Smoking history: Current every day smoker Have you smoked in the past 12 months: Yes Aproximately how many cigarettes per day: 5 Hx Chewing Tobacco Use: No Initiated information on smoking cessation: Yes 'Breaking Loose' booklet given: 01/26/18 - Substance & Tx. History Hx Alcohol Use: Yes Hx Substance Use: Yes Substance Use Type: Alcohol, Heroin Hx Substance Use Treatment: Yes (Last detox [facility] 08/13/17 - 08/18/17) - Substances Abused Alcohol-beer/vodka Route: Oral Frequency: Daily Amount used: 2-6 pks./2 shots Age of first use: 22 Date of Last Use: 01/26/18 Oxycodone Route: Oral Frequency: Daily Amount used: 8 tabs. (7.5 mg.) Age of first use: 41 Date of Last Use: 01/25/18 Family Disease History - Family Disease History Family Disease History: Other: Father (h/o suicde or od, heroin) Admission Physical Exam BHS - Vital Signs Vital Signs: Vital Signs - 24 hr 01/26/18 08:52 Temperature 96.7 F L Pulse Rate 83 Respiratory 18 Rate Blood Pressure 121/82 - Physical General Appearance: Yes: Disheveled, Moderate Distress, Thin, Sweating, Anxious HEENTM: Yes: EOMI, Hearing grossly Normal, Normal ENT Inspection, Normocephalic , Normal Voice, [place], Pharynx Normal, Tm's normal Respiratory: Yes: Chest Non-Tender, Lungs Clear, Normal Breath Sounds, No Respiratory Distress, No Accessory Muscle Use Neck: Yes: Within Normal Limits Breast: Yes: Other (stitches present around the areola bilaterally, no erythema , no edema present. 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 NML intact, Fully Oriented, Alert, Motor Strength 5/5, Normal Response Integumentary: Yes: Normal Color, Warm, Diaphoresis Lymphatic: Yes: Within Normal Limits - Diagnostic (1) Psychiatric disorder Current Visit: Yes Status: Acute (2) H/O bilateral breast implants Current Visit: Yes Status: Acute (3) Nicotine dependence Current Visit: Yes Status: Acute Qualifiers: Nicotine product type: cigarettes (4) Opioid dependence with withdrawal Current Visit: Yes Status: Acute (5) Weight loss Current Visit: Yes Status: Acute Cleared for Admission [facility] - Detox or Rehab [facility] Level of Care: Medically Managed Detox Regimen/Protocol: Methadone/Librium [facility] Breath Alcohol Content Breath Alcohol Content: 0.008 Urine Pregancy Test - Result Urine Test Results: Negative- NO Line Present Urine Drug Screen - Results Drug Screen Negative: No Urine Drug Screen Results: MET-Methamphetamine, OXY-Oxycodone
[2018-01-26] MEDS ORDERED: guaiFENesin/D-METHORPHAN HB 10 ML UNIT-DOSE CUPS PO PRN (18:10)
[2018-01-26] MEDS ORDERED: MAGNESIUM CITRATE 300 ML BOTTLE PO PRN (18:10)
[2018-01-26] MEDS ORDERED: MAGNESIUM HYDROX 2400MG/30ML ORAL SUSPENSION 30 ML CUP PO PRN (18:10)
[2018-01-26] MEDS ORDERED: IBUPROFEN 400 MG TABLET (FP) PO PRN ×2 (18:10→18:20)
[2018-01-26] MEDS ORDERED: P-EPHED 60MG/TRIPROLIDI 2.5MG TABLET PO PRN (18:10)
[2018-01-26] MEDS ORDERED: MAG HYDROX/AL HYDROX/SIMETH 30 ML UNIT-DOSE CUP PO PRN (18:10)
[2018-01-26] MEDS ORDERED: LOPERAMIDE HCL 2 MG CAPSULE PO PRN (18:10)
[2018-01-26] MEDS ORDERED: MENTHOL/PHENOL 1 EACH UD MM PRN (18:10)
[2018-01-26] MEDS ORDERED: METHADONE HCL 10 MG TABLET (FOR DETOX USE ONLY) PO ONE ×2 (18:45→23:00)
[2018-01-26] MEDS ORDERED: chlordiazePOXIDE HCL 25 MG CAPSULE PO ONE (19:00)
[2018-01-26] MEDS: CYCLOBENZAPRINE HCL 10 MG TABLET (FP) PO PRN (22:34)
[2018-01-26] MEDS: chlordiazePOXIDE HCL 25 MG CAPSULE PO SCH (22:34)
[2018-01-26] MEDS: THIAMINE HCL 100 MG TABLET (FP) PO SCH (22:35)
[2018-01-26] MEDS: LIDOCAINE PATCH REMOVAL MC SCH (22:35)
[2018-01-26] MEDS: MELATONIN 5 MG TABLETS PO PRN (22:38)
[2018-01-27 00:59] LABS: URINE APPEARANCE CLOUDY; URINE BILIRUBIN NEGATIVE (<2.0 mg/dL); URINE COLOR YELLOW; URINE GLUCOSE (UA) NEGATIVE (NEGATIVE); URINE KETONE TRACE (NEGATIVE); URINE LEUK ESTERASE NEGATIVE (NEGATIVE); URINE NITRITE NEGATIVE (NEGATIVE); URINE PROTEIN NEGATIVE (NEGATIVE); URINE UROBILINOGEN NEGATIVE mg/dL (0.2-1.0)
[2018-01-27 01:09] LABS: EPI CELLS MODERATE /HPF (FEW); URINE BACTERIA RARE /hpf (NONE SEEN); URINE HYALINE CAST 1 /lpf; URINE MUCUS MANY
[2018-01-27] MEDS: hydrOXYzine PAMOATE 50 MG CAPSULE (FP) PO PRN ×2 (02:14→12:35)
[2018-01-27] MEDS: chlordiazePOXIDE HCL 25 MG CAPSULE PO SCH ×4 (06:13→22:28)
--- NOTE | 2018-01-27 09:07 | CONSULT ---
[facility] Psychiatric Consult - Data Date of interview: 01/27/18 Admission source: [facility] Identifying data: This is a 42 years old female, single mother of one, livingn with family, unemployed , on SSI, with no psychiatric hospitalizatioin history, with history of Opioids and Alcohole, Nicotine dependence, is here reporting withdrawal symptoms and seeking detox.with hx of nicotine, oxycodone and alcohol dependence presents here for detox. Substance Abuse History: Smoking history: Current every day smoker. Have you smoked in the past 12 months: Yes. Aproximately how many cigarettes per day: 5. Hx Chewing Tobacco Use: No. Initiated information on smoking cessation: Yes. 'Breaking Loose' booklet given: 01/26/18. - Substance & Tx. History. Hx Alcohol Use: Yes. Hx Substance Use: Yes. Substance Use Type: Alcohol, Heroin. Hx Substance Use Treatment: Yes (Last detox [facility] 08/13/17 - 08/18/17). - Substances Abused. Alcohol-beer/vodka. Route: Oral. Frequency: Daily. Amount used: 2-6 pks./2 shots. Age of first use: 22. Date of Last Use: . Oxycodone. Route: Oral. Frequency: Daily. Amount used: 8 tabs. (7.5 mg.). Age of first use: 41. Date of Last Use: 01/25/18 Medical History: Byletaral breasts implants history, Weight loss history Psychiatric History: As per computer there is a history of Bipoloar Disorder, patient preoccupied with insokmnia, reports taking prior to admission: Ambien 10mg po,qhs. Seroquel 50mg po qhs Physical/Sexual Abuse/Trauma History: Denies Additional Comment: Ambien 10mg po,qhs. Seroquel 50mg po qhs Mental Status Exam - Mental Status Exam Alert and Oriented to: Person Cognitive Function: Fair Patient Appearance: Unkempt Mood: Anxious Affect: Mood Congruent Patient Behavior: Cooperative Speech Pattern: Appropriate Voice Loudness: Normal Thought Process: Goal Oriented Thought Disorder: Being Controlled Hallucinations: Denies Suicidal Ideation: Denies Homicidal Ideation: Denies Insight/Judgement: Fair Sleep: Difficulty falling asleep Appetite: Weight loss Muscle strength/Tone: Normal Gait/Station: Normal Additional Comments: Ambien 10mg po,qhs. Seroquel 50mg po qhs Psychiatric Findings - Problem List ([place] 1, 2,3) (1) H/O bilateral breast implants Current Visit: Yes Status: Acute (2) Nicotine dependence Current Visit: Yes Status: Acute Qualifiers: Nicotine product type: cigarettes (3) Opioid dependence with withdrawal Current Visit: Yes Status: Acute (4) Psychiatric disorder Current Visit: Yes Status: Acute (5) Weight loss Current Visit: Yes Status: Acute (6) Bipolar 1 disorder Current Visit: No Status: Chronic - Initial Treatment Plan Initial Treatment Plan: Seroquel 50mg po,qhs. Ambien 10mg po prrn qhs for insomnia
[2018-01-27] MEDS ORDERED: METHADONE HCL 10 MG TABLET (FOR DETOX USE ONLY) PO SCH (10:00)
[2018-01-27 10:02] LABS: HEMATOCRIT 35.1 % (32.4-45.2); HEMOGLOBIN 11.5 GM/dL (10.7-15.3); MCH 30.6 pg (25.7-33.7); MCHC 32.7 g/dl (32.0-36.0); MEAN CELL VOLUME 93.6 fl (80-96); MEAN PLT VOLUME 9.8 fl (7.5-11.1); PLATELET COUNT 246 K/MM3 (134-434); RBC 3.75 M/mm3 (3.60-5.2); RDW 12.8 % (11.6-15.6); WHITE BLOOD COUNT 7.6 K/mm3 (4.0-10.0)
[2018-01-27 10:11] LABS: ALBUMIN 2.9 g/dl (3.4-5.0); CHLORIDE 108 mmol/L (98-107); POTASSIUM 3.9 mmol/L (3.5-5.1); SODIUM 141 mmol/L (136-145)
[2018-01-27 10:19] LABS: ALK PHOS 88 U/L (45-117); ANION GAP 4 MMOL/L (8-16); BLOOD UREA NITROGEN 14 mg/dL (7-18); CALCIUM 8.1 mg/dL (8.5-10.1); CO2 29 mmol/L (21-32); CREATININE 0.5 mg/dL (0.55-1.02); GLUCOSE,RANDOM 101 mg/dL (74-106); SGOT/AST 12 U/L (15-37); SGPT/ALT 37 U/L (12-78); TOT PROT 5.7 g/dl (6.4-8.2)
[2018-01-27 10:21] LABS: BILIRUBIN,TOTAL < 0.1 mg/dL (0.2-1.0)
--- NOTE | 2018-01-27 10:32 | PN ---
[facility] CIWA - CIWA Score Nausea/Vomitin-Mild Nausea/No Vomiting Muscle Tremors: 4-Moderate,w/Arms Extend Anxiety: 4-Mod. Anxious/Guarded Agitation: 4-Moderately Restless Paroxysmal Sweats: 1-Minimal Palms Moist Orientation: 1-Uncertain about Date Tacttile Disturbances: 1-Very Mild Itch/Numbness Auditory Disturbances: 0-None Visual Disturbances: 0-None Headache: 0-None Present CIWA-Ar Total Score: 16 S COWS - Scale Resting Pulse: 0= [place] 80 or Below Sweatin= Chills/Flushing Restless Observation: 1= Difficult to Sit Still Pupil Size: 0= Normal to Room Light Bone or Joint Aches: 2= Severe Diffuse Aches Runny Nose/ Eye Tearin= Runny Nose/Eyes GI Upset > 30mins: 2= Nausea/Diarrhea Tremor Observation of Outstretched Hands: 2= Slight Tremor Visible Yawning Observation: 1= 1-2x During Session Anxiety or Irritability: 2=Irritable/Anxious Goose Flesh Skin: 3=Piloerection COWS Score: 16 [facility] Progress Note (SOAP) Subjective: chill hot and cold diarrhea gi distress body aches Objective: 01/27/18 10:33 Vital Signs Temperature 97.5 F L 01/27/18 09:20 Pulse Rate 83 01/27/18 09:20 Respiratory Rate 16 01/27/18 09:20 Blood Pressure 122/85 01/27/18 09:20 O2 Sat by Pulse Oximetry (%) Laboratory Last Values WBC 7.6 K/mm3 (4.0-10.0) 01/27/18 07:00 RBC 3.75 M/mm3 (3.60-5.2) 01/27/18 07:00 Hgb 11.5 GM/dL (10.7-15.3) 01/27/18 07:00 Hct 35.1 % (32.4-45.2) D 01/27/18 07:00 MCV 93.6 fl (80-96) 01/27/18 07:00 MCH 30.6 pg (25.7-33.7) 01/27/18 07:00 MCHC 32.7 g/dl (32.0-36.0) 01/27/18 07:00 RDW 12.8 % (11.6-15.6) 01/27/18 07:00 Plt Count 246 K/MM3 (134-434) 01/27/18 07:00 MPV 9.8 fl (7.5-11.1) 01/27/18 07:00 Sodium 141 mmol/L (136-145) 01/27/18 07:00 Potassium 3.9 mmol/L (3.5-5.1) 01/27/18 07:00 Chloride 108 mmol/L (98-107) H 01/27/18 07:00 Carbon Dioxide 29 mmol/L (21-32) 01/27/18 07:00 Anion Gap 4 MMOL/L (8-16) L 01/27/18 07:00 BUN 14 mg/dL (7-18) 01/27/18 07:00 Creatinine 0.5 mg/dL (0.55-1.02) L 01/27/18 07:00 Creat Clearance w eGFR > 60 (>60) 01/27/18 07:00 Random Glucose 101 mg/dL (74-106) 01/27/18 07:00 Calcium 8.1 mg/dL (8.5-10.1) L 01/27/18 07:00 Total Bilirubin < 0.1 mg/dL (0.2-1.0) L 01/27/18 07:00 AST 12 U/L (15-37) L 01/27/18 07:00 ALT 37 U/L (12-78) 01/27/18 07:00 Alkaline Phosphatase 88 U/L (45-117) 01/27/18 07:00 Total Protein 5.7 g/dl (6.4-8.2) L 01/27/18 07:00 Albumin 2.9 g/dl (3.4-5.0) L 01/27/18 07:00 Urine Color Yellow 01/26/18 23:22 Urine Appearance Cloudy 01/26/18 23:22 Urine pH 5.0 (5.0-8.0) D 01/26/18 23:22 Ur Specific [place] 1.013 (1.001-1.035) 01/26/18 23:22 Urine Protein Negative (NEGATIVE) 01/26/18 23:22 Urine Glucose (UA) Negative (NEGATIVE) 01/26/18 23:22 Urine Ketones Trace (NEGATIVE) H 01/26/18 23:22 Urine Blood 1+ (NEGATIVE) H 01/26/18 23:22 Urine Nitrite Negative (NEGATIVE) 01/26/18 23:22 Urine Bilirubin Negative (<2.0 mg/dL) 01/26/18 23:22 Urine Urobilinogen Negative mg/dL (0.2-1.0) 01/26/18 23:22 Ur Leukocyte Esterase Negative (NEGATIVE) 01/26/18 23:22 Urine WBC (Auto) 10 /hpf (3-5) 01/26/18 23:22 Urine RBC (Auto) <1 /hpf (0-3) 01/26/18 23:22 Ur Epithelial Cells Moderate /HPF (FEW) 01/26/18 23:22 Urine Bacteria Rare /hpf (NONE SEEN) 01/26/18 23:22 Hyaline Casts 1 /lpf 01/26/18 23:22 Urine Mucus Many 01/26/18 23:22 lab noted Assessment: 01/27/18 10:34 withdrawal sx Plan: continue detox imodium muscle relaxant zantac for supportive therapies
[2018-01-27] MEDS: PRENATAL VITAMINS W/ FOLIC ACID TABLET (FP) PO SCH (10:41)
[2018-01-27] MEDS: LIDOCAINE 5% TOPICAL PATCH TP SCH (10:42)
[2018-01-27] MEDS: RANITIDINE HCL 150 MG TABLET (FP) PO SCH ×2 (10:44→22:28)
[2018-01-27] MEDS: ACETAMINOPHEN 325 MG TABLET (FP) PO PRN (10:45)
--- NOTE | 2018-01-27 11:44 | EKG ---
Test Reason : Blood Pressure : / mmHG Vent. Rate : 079 BPM Atrial Rate : 079 BPM P-R Int : 142 ms QRS Dur : 072 ms QT Int : 368 ms P-R-T Axes : 069 082 066 degrees QTc Int : 421 ms NORMAL SINUS RHYTHM NORMAL ECG WHEN COMPARED WITH ECG OF 13-AUG-2017 19:00, NO SIGNIFICANT CHANGE WAS FOUND Confirmed by KWASI OVERTON MD ([id number]) on 01/27/2018 11:44:32 AM Referred By: Confirmed By:KWASI OVERTON MD
[2018-01-27] MEDS: CYCLOBENZAPRINE HCL 10 MG TABLET (FP) PO PRN ×2 (14:18→22:27)
[2018-01-27] MEDS: chlordiazePOXIDE HCL 25 MG CAPSULE PO PRN (14:18)
[2018-01-27] MEDS: ZOLPIDEM TARTRATE 10 MG TABLET (PARK CARE ONLY) PO PRN (22:27)
[2018-01-27] MEDS: THIAMINE HCL 100 MG TABLET (FP) PO SCH (22:28)
[2018-01-27] MEDS: LIDOCAINE PATCH REMOVAL MC SCH (22:28)
[2018-01-27] MEDS: QUEtiapine FUMARATE 50 MG TABLET PO SCH (22:28)
[2018-01-28] MEDS: ACETAMINOPHEN 325 MG TABLET (FP) PO PRN ×2 (03:55→16:40)
[2018-01-28] MEDS: chlordiazePOXIDE HCL 25 MG CAPSULE PO SCH ×3 (05:55→16:36)
[2018-01-28] MEDS: chlordiazePOXIDE HCL 25 MG CAPSULE PO PRN ×2 (08:52→20:39)
[2018-01-28] MEDS: CYCLOBENZAPRINE HCL 10 MG TABLET (FP) PO PRN ×3 (08:52→22:26)
[2018-01-28] MEDS: METHADONE HCL 5 MG TABLET (FOR DETOX USE ONLY) PO SCH (11:29)
[2018-01-28] MEDS: PRENATAL VITAMINS W/ FOLIC ACID TABLET (FP) PO SCH (11:29)
[2018-01-28] MEDS: RANITIDINE HCL 150 MG TABLET (FP) PO SCH ×2 (11:30→22:27)
[2018-01-28] MEDS: LIDOCAINE 5% TOPICAL PATCH TP SCH (11:30)
--- NOTE | 2018-01-28 13:25 | PN ---
S CIWA - CIWA Score Nausea/Vomitin-Mild Nausea/No Vomiting Muscle Tremors: 3 Anxiety: 3 Agitation: 3 Paroxysmal Sweats: 1-Minimal Palms Moist Orientation: 0-Oriented Tacttile Disturbances: 1-Very Mild Itch/Numbness Auditory Disturbances: 0-None Visual Disturbances: 0-None Headache: 0-None Present CIWA-Ar Total Score: 12 [facility] Progress Note (SOAP) Subjective: sweat tremor hot and cool chill restlessness trouble sleep at night Objective: 01/28/18 13:24 Vital Signs Temperature 97.9 F 01/28/18 09:13 Pulse Rate 93 H 01/28/18 09:13 Respiratory Rate 18 01/28/18 09:13 Blood Pressure 111/69 01/28/18 09:13 O2 Sat by Pulse Oximetry (%) Laboratory Last Values WBC 7.6 K/mm3 (4.0-10.0) 01/27/18 07:00 RBC 3.75 M/mm3 (3.60-5.2) 01/27/18 07:00 Hgb 11.5 GM/dL (10.7-15.3) 01/27/18 07:00 Hct 35.1 % (32.4-45.2) D 01/27/18 07:00 MCV 93.6 fl (80-96) 01/27/18 07:00 MCH 30.6 pg (25.7-33.7) 01/27/18 07:00 MCHC 32.7 g/dl (32.0-36.0) 01/27/18 07:00 RDW 12.8 % (11.6-15.6) 01/27/18 07:00 Plt Count 246 K/MM3 (134-434) 01/27/18 07:00 MPV 9.8 fl (7.5-11.1) 01/27/18 07:00 Sodium 141 mmol/L (136-145) 01/27/18 07:00 Potassium 3.9 mmol/L (3.5-5.1) 01/27/18 07:00 Chloride 108 mmol/L (98-107) H 01/27/18 07:00 Carbon Dioxide 29 mmol/L (21-32) 01/27/18 07:00 Anion Gap 4 MMOL/L (8-16) L 01/27/18 07:00 BUN 14 mg/dL (7-18) 01/27/18 07:00 Creatinine 0.5 mg/dL (0.55-1.02) L 01/27/18 07:00 Creat Clearance w eGFR > 60 (>60) 01/27/18 07:00 Random Glucose 101 mg/dL (74-106) 01/27/18 07:00 Calcium 8.1 mg/dL (8.5-10.1) L 01/27/18 07:00 Total Bilirubin < 0.1 mg/dL (0.2-1.0) L 01/27/18 07:00 AST 12 U/L (15-37) L 01/27/18 07:00 ALT 37 U/L (12-78) 01/27/18 07:00 Alkaline Phosphatase 88 U/L (45-117) 01/27/18 07:00 Total Protein 5.7 g/dl (6.4-8.2) L 01/27/18 07:00 Albumin 2.9 g/dl (3.4-5.0) L 01/27/18 07:00 Urine Color Yellow 01/26/18 23:22 Urine Appearance Cloudy 01/26/18 23:22 Urine pH 5.0 (5.0-8.0) D 01/26/18 23:22 Ur Specific [place] 1.013 (1.001-1.035) 01/26/18 23:22 Urine Protein Negative (NEGATIVE) 01/26/18 23:22 Urine Glucose (UA) Negative (NEGATIVE) 01/26/18 23:22 Urine Ketones Trace (NEGATIVE) H 01/26/18 23:22 Urine Blood 1+ (NEGATIVE) H 01/26/18 23:22 Urine Nitrite Negative (NEGATIVE) 01/26/18 23:22 Urine Bilirubin Negative (<2.0 mg/dL) 01/26/18 23:22 Urine Urobilinogen Negative mg/dL (0.2-1.0) 01/26/18 23:22 Ur Leukocyte Esterase Negative (NEGATIVE) 01/26/18 23:22 Urine WBC (Auto) 10 /hpf (3-5) 01/26/18 23:22 Urine RBC (Auto) <1 /hpf (0-3) 01/26/18 23:22 Ur Epithelial Cells Moderate /HPF (FEW) 01/26/18 23:22 Urine Bacteria Rare /hpf (NONE SEEN) 01/26/18 23:22 Hyaline Casts 1 /lpf 01/26/18 23:22 Urine Mucus Many 01/26/18 23:22 RPR Titer Nonreactive (NONREACTIVE) 01/27/18 07:00 lab noted Assessment: 01/28/18 13:25 withdrawal sx Plan: continue detox
--- NOTE | 2018-01-28 13:31 | PN ---
BHS COWS - Scale Resting Pulse: 1= [place] 81-100 Sweatin= Chills/Flushing Restless Observation: 1= Difficult to Sit Still Pupil Size: 0= Normal to Room Light Bone or Joint Aches: 1= Mild Discomfort Runny Nose/ Eye Tearin= Nasal Congestion GI Upset > 30mins: 2= Nausea/Diarrhea Tremor Observation of Outstretched Hands: 2= Slight Tremor Visible Yawning Observation: 0= None Anxiety or Irritability: 1=Feels Anxious/Irritable Goose Flesh Skin: 3=Piloerection COWS Score: 13 [facility] Progress Note (SOAP) Subjective: body ache joints pain
[2018-01-28] MEDS: hydrOXYzine PAMOATE 50 MG CAPSULE (FP) PO PRN ×2 (14:24→20:39)
[2018-01-28] MEDS: ZOLPIDEM TARTRATE 10 MG TABLET (PARK CARE ONLY) PO PRN (22:26)
[2018-01-28] MEDS: THIAMINE HCL 100 MG TABLET (FP) PO SCH (22:27)
[2018-01-28] MEDS: LIDOCAINE PATCH REMOVAL MC SCH (22:27)
[2018-01-28] MEDS: MELATONIN 5 MG TABLETS PO PRN (22:27)
[2018-01-28] MEDS: chlordiazePOXIDE 5 MG CAPSULE PO SCH (22:27)
[2018-01-28] MEDS: QUEtiapine FUMARATE 50 MG TABLET PO SCH (22:27)
[2018-01-29] MEDS: chlordiazePOXIDE 5 MG CAPSULE PO SCH ×3 (05:30→17:03)
[2018-01-29] MEDS: CYCLOBENZAPRINE HCL 10 MG TABLET (FP) PO PRN (09:03)
[2018-01-29] MEDS: PRENATAL VITAMINS W/ FOLIC ACID TABLET (FP) PO SCH (10:49)
[2018-01-29] MEDS: RANITIDINE HCL 150 MG TABLET (FP) PO SCH ×2 (10:49→22:12)
[2018-01-29] MEDS: NAPROXEN 500 MG TABLET (FP) PO SCH ×2 (10:50→22:12)
[2018-01-29] MEDS: METHADONE HCL 5 MG TABLET (FOR DETOX USE ONLY) PO SCH (10:50)
[2018-01-29] MEDS: LIDOCAINE 5% TOPICAL PATCH TP SCH (10:51)
--- NOTE | 2018-01-29 11:20 | PN ---
[facility] Progress Note (SOAP) Subjective: sweats agitation anxiety body aches Objective: 01/29/18 11:19 Vital Signs Temperature 97.7 F 01/29/18 10:14 Pulse Rate 99 H 01/29/18 10:14 Respiratory Rate 18 01/29/18 10:14 Blood Pressure 103/62 01/29/18 10:14 O2 Sat by Pulse Oximetry (%) aaox3 ambulating no acute distress Assessment: 01/29/18 11:19 withdrawal sx Plan: continue detox increase fluids naproxen bid psych ordered for revisit d/c in am
--- NOTE | 2018-01-29 12:11 | PN ---
Psychiatric Progress Note Vital Signs: Vital Signs Period Temp Pulse Resp BP Sys/Saldaña Pulse Ox Last 24 Hr 97.0 F-98.6 F 88-106 16-20 103-120/62-76 Date of Session: 01/29/18 Chief Complaint:: "i'm depressed." HPI: Patient admitted to for opiate dependence. ROS: h/o bilateral breast implants Current Medications: Active Medications Generic Name Dose Route Start Last Admin Trade Name Freq PRN Reason Stop Dose Admin Acetaminophen 650 mg 01/26/18 18:10 01/28/18 16:40 Tylenol - PO 650 mg Q4H PRN Administration FEVER Al Hydroxide/Mg Hydroxide 30 ml 01/26/18 18:10 Mylanta Oral Suspension - PO Q6H PRN DYSPEPSIA Chlordiazepoxide HCl 15 mg 01/28/18 23:00 01/29/18 10:49 Librium - PO 01/29/18 17:01 15 mg [id number] CHANDANA Administration Chlordiazepoxide HCl 10 mg 01/29/18 23:00 Librium - PO 01/30/18 17:01 [id number] CHANDANA Chlordiazepoxide HCl 25 mg 01/26/18 18:10 01/28/18 20:39 Librium - PO 01/29/18 18:10 25 mg Q4H PRN Administration WITHDRAWAL(CONT SUBST) Cyclobenzaprine HCl 10 mg 01/26/18 18:19 01/29/18 09:03 Flexeril - PO 10 mg TID PRN Administration MUSCLE SPASMS Eucalyptus/Menthol/Phenol/Sorbitol 1 each 01/26/18 18:10 Cepastat Lozenge - MM Q4H PRN SORE THROAT Guaifenesin 10 ml 01/26/18 18:10 Robitussin Dm - PO Q6H PRN COUGH Hydroxyzine Pamoate 50 mg 01/26/18 18:10 01/28/18 20:39 Vistaril - PO 50 mg Q4H PRN Administration AGITATION Lidocaine 1 patch 01/27/18 10:00 01/29/18 10:51 Lidoderm Patch - TP 1 patch DAILY CHANDANA Administration Loperamide HCl 4 mg 01/26/18 18:10 Imodium - PO Q6H PRN DIARRHEA Magnesium Citrate 300 ml 01/26/18 18:10 Citroma - PO Q48H PRN CONSTIPATION Magnesium Hydroxide 30 ml 01/26/18 18:10 Milk Of Magnesia - PO DAILY PRN CONSTIPATION Melatonin 5 mg 01/26/18 22:00 01/28/18 22:27 Melatonin PO 5 mg HS PRN Administration INSOMNIA Methadone HCl 5 mg 01/31/18 06:00 Dolophine - PO 01/31/18 06:01 DAILY@0600 CHANDANA Methadone HCl 10 mg 01/30/18 10:00 Dolophine - PO 01/30/18 10:01 DAILY [facility] Miscellaneous 1 each 01/26/18 22:00 01/28/18 22:27 Lidoderm Patch Removal MC Not Given DAILY@2200 [facility] Naproxen 500 mg 01/29/18 10:00 01/29/18 10:50 Naprosyn - PO 500 mg BID CHANDANA Administration Multivit/Folic Acid/Iron 1 tab 01/27/18 10:00 01/29/18 10:49 Vitamins (Sjr) - PO 1 tab DAILY CHANDANA Administration Pseudoephedrine/Triprolidine 1 combo 01/26/18 18:10 Actifed - PO TID PRN NASAL CONGESTION Quetiapine Fumarate 50 mg 01/27/18 22:00 01/28/18 22:27 Seroquel - PO 50 mg HS CHANDANA Administration Ranitidine HCl 150 mg 01/27/18 10:30 01/29/18 10:49 Zantac - PO 150 mg BID CHANDANA Administration Thiamine HCl 100 mg 01/26/18 22:00 01/28/18 22:27 Vitamin B1 - PO 100 mg HS CHANDANA Administration Zolpidem Tartrate 10 mg 01/27/18 22:00 01/28/18 22:26 Ambien - PO 01/30/18 21:59 10 mg HS PRN Administration INSOMNIA Medication(s) Change(s): Yes. Will add wellbutrin 75mg BID 1000 + 1700 Current Side Effect: No Lab tests ordered: No Lab tests reviewed: Yes Provider note:: Patient reports worsening depression and anxiety secondary to her dissatisfaction of her bilateral breast implant and substance abuse. Chart and medications reviewed. Outpatient psychiatrist prescribes patient wellbutrin 75mg BID. Last prescription was electronically sent to patient's pharmacy on 12/18. Pt. not accepting Wellbutrin while in detox. Pt. educated on the importance of medication compliance. Patient agreeable to accepting wellbutrin 75mg BID. She is also accepting vistaril 50mg for anxiety with favorable effects. A prescription of 30 tablets of vistaril 50mg was electronically sent to patient' s pharmacy. Patient denies urges or thoughts to hurt self or others. Pt encouraged to utilize her coping skills to help lessen her anxiety. Pt. satisfied and receptive to feedback. Total face to face time:: 25 Mental Status Exam - Mental Status Exam Alert and Oriented to: Time, Place, Person Cognitive Function: Good Patient Appearance: Well Groomed Mood: Sad, Hopeful Affect: Mood Congruent Patient Behavior: Crying (Tearful ), Appropriate, Cooperative Speech Pattern: Clear, Appropriate Voice Loudness: Normal Thought Process: Intact, Goal Oriented Hallucinations: Denies Suicidal Ideation: Denies Homicidal Ideation: Denies Insight/Judgement: Poor Sleep: Fair Appetite: Fair Muscle strength/Tone: Normal Gait/Station: Normal Psychiatric Treatment Plan - Problem List (1) Nicotine dependence Current Visit: Yes Qualifiers: Nicotine product type: cigarettes (2) Opioid dependence with withdrawal Current Visit: Yes (3) Anxiety disorder Current Visit: Yes (4) Mood disorder Current Visit: Yes
[2018-01-29] MEDS ORDERED: BACITRACIN 0.9 GM PACKET TP ONE (12:53)
[2018-01-29] MEDS: hydrOXYzine PAMOATE 50 MG CAPSULE (FP) PO PRN ×2 (12:54→17:03)
[2018-01-29] MEDS: buPROPion HCL 75 MG TABLET PO SCH (17:03)
[2018-01-29] MEDS: chlordiazePOXIDE HCL 10 MG CAPSULE PO SCH (22:12)
[2018-01-29] MEDS: QUEtiapine FUMARATE 50 MG TABLET PO SCH (22:12)
[2018-01-29] MEDS: BACITRACIN 0.9 GM PACKET TP SCH (22:13)
[2018-01-29] MEDS: LIDOCAINE PATCH REMOVAL MC SCH (22:13)
[2018-01-29] MEDS: THIAMINE HCL 100 MG TABLET (FP) PO SCH (22:13)
[2018-01-29] MEDS: ZOLPIDEM TARTRATE 10 MG TABLET (PARK CARE ONLY) PO PRN (22:17)
[2018-01-30] MEDS: hydrOXYzine PAMOATE 50 MG CAPSULE (FP) PO PRN ×4 (03:09→21:13)
[2018-01-30] MEDS: ACETAMINOPHEN 325 MG TABLET (FP) PO PRN (03:09)
[2018-01-30] MEDS: chlordiazePOXIDE HCL 10 MG CAPSULE PO SCH ×3 (06:00→17:06)
[2018-01-30] MEDS ORDERED: METHADONE HCL 10 MG TABLET (FOR DETOX USE ONLY) PO SCH (10:00)
[2018-01-30] MEDS: PRENATAL VITAMINS W/ FOLIC ACID TABLET (FP) PO SCH (10:38)
[2018-01-30] MEDS: BACITRACIN 0.9 GM PACKET TP SCH ×2 (10:38→22:28)
[2018-01-30] MEDS: RANITIDINE HCL 150 MG TABLET (FP) PO SCH ×2 (10:38→22:28)
[2018-01-30] MEDS: buPROPion HCL 75 MG TABLET PO SCH ×2 (10:38→17:06)
[2018-01-30] MEDS: LIDOCAINE 5% TOPICAL PATCH TP SCH (10:38)
[2018-01-30] MEDS: NAPROXEN 500 MG TABLET (FP) PO SCH ×2 (10:38→22:28)
[2018-01-30] MEDS: CYCLOBENZAPRINE HCL 10 MG TABLET (FP) PO PRN (13:01)
--- NOTE | 2018-01-30 16:06 | PN ---
[facility] Progress Note (SOAP) Subjective: pt on detox protocol- last day of detox- to go home tomorrow. O: Vital Signs - 24 hr 01/29/18 01/29/18 01/30/18 18:25 22:35 00:30 Temperature 98.0 F 98.2 F Pulse Rate 98 H 97 H Respiratory 18 20 18 Rate Blood Pressure 115/76 113/81 01/30/18 01/30/18 01/30/18 03:30 07:58 09:01 Temperature 97.5 F L 97.7 F Pulse Rate 99 H 102 H Respiratory 18 20 16 Rate Blood Pressure 118/79 107/71 01/30/18 13:52 Temperature 98.1 F Pulse Rate 95 H Respiratory 16 Rate Blood Pressure 114/75 Laboratory Tests 01/26/18 01/27/18 01/27/18 23:22 07:00 07:00 WBC 7.6 RBC 3.75 Hgb 11.5 Hct 35.1 D MCV 93.6 MCH 30.6 MCHC 32.7 RDW 12.8 Plt Count 246 MPV 9.8 Sodium 141 Potassium 3.9 Chloride 108 H Carbon Dioxide 29 Anion Gap 4 L BUN 14 Creatinine 0.5 L Creat Clearance w eGFR > 60 Random Glucose 101 Calcium 8.1 L Total Bilirubin < 0.1 L AST 12 L ALT 37 Alkaline Phosphatase 88 Total Protein 5.7 L Albumin 2.9 L Urine Color Yellow Urine Appearance Cloudy Urine pH 5.0 D Ur Specific [place] 1.013 Urine Protein Negative Urine Glucose (UA) Negative Urine Ketones Trace H Urine Blood 1+ H Urine Nitrite Negative Urine Bilirubin Negative Urine Urobilinogen Negative Ur Leukocyte Esterase Negative Urine WBC (Auto) 10 Urine RBC (Auto) <1 Ur Epithelial Cells Moderate Urine Bacteria Rare Hyaline Casts 1 Urine Mucus Many RPR Titer 01/27/18 07:00 WBC RBC Hgb Hct MCV MCH MCHC RDW Plt Count MPV Sodium Potassium Chloride Carbon Dioxide Anion Gap BUN Creatinine Creat Clearance w eGFR Random Glucose Calcium Total Bilirubin AST ALT Alkaline Phosphatase Total Protein Albumin Urine Color Urine Appearance Urine pH Ur Specific [place] Urine Protein Urine Glucose (UA) Urine Ketones Urine Blood Urine Nitrite Urine Bilirubin Urine Urobilinogen Ur Leukocyte Esterase Urine WBC (Auto) Urine RBC (Auto) Ur Epithelial Cells Urine Bacteria Hyaline Casts Urine Mucus RPR Titer Nonreactive mild anemia, low albumin/protein A/p: continue methadone detox protocol, discharge anticipated tomorrow
[2018-01-30] MEDS: THIAMINE HCL 100 MG TABLET (FP) PO SCH (22:28)
[2018-01-30] MEDS: QUEtiapine FUMARATE 50 MG TABLET PO SCH (22:28)
[2018-01-30] MEDS: LIDOCAINE PATCH REMOVAL MC SCH (22:29)
[2018-01-30] MEDS: MELATONIN 5 MG TABLETS PO PRN (22:30)
[2018-01-31] MEDS: hydrOXYzine PAMOATE 50 MG CAPSULE (FP) PO PRN (05:41)
[2018-01-31] MEDS ORDERED: METHADONE HCL 5 MG TABLET (FOR DETOX USE ONLY) PO SCH (06:00)
--- NOTE | 2018-01-31 08:54 | DS ---
[facility] Detox Discharge Summary Admission Date: 01/26/18 Discharge Date: 01/31/18 - History Present History: Alcohol Dependence, Opioid Dependence Additional Comments: 43 years old female admitted on 01/26/18 for alcohol and opiate withdrawal sx completed alcohol and opiate detox regimen tolerated well denies alcohol and opiate withdrawal sx alert oriented x 3 no acute distress aftercare [facility] - Physical Exam Results Vital Signs: Vital Signs Temperature 97.7 F 01/31/18 07:32 Pulse Rate 89 01/31/18 07:32 Respiratory Rate 18 01/31/18 07:32 Blood Pressure 97/65 01/31/18 07:32 O2 Sat by Pulse Oximetry (%) Pertinent Admission Physical Exam Findings: alcohol and opiate withdrawal sx Vital Signs Temperature 97.9 F 01/31/18 09:40 Pulse Rate 96 H 01/31/18 09:40 Respiratory Rate 16 01/31/18 09:40 Blood Pressure 104/68 01/31/18 09:40 O2 Sat by Pulse Oximetry (%) Laboratory Last Values WBC 7.6 K/mm3 (4.0-10.0) 01/27/18 07:00 RBC 3.75 M/mm3 (3.60-5.2) 01/27/18 07:00 Hgb 11.5 GM/dL (10.7-15.3) 01/27/18 07:00 Hct 35.1 % (32.4-45.2) D 01/27/18 07:00 MCV 93.6 fl (80-96) 01/27/18 07:00 MCH 30.6 pg (25.7-33.7) 01/27/18 07:00 MCHC 32.7 g/dl (32.0-36.0) 01/27/18 07:00 RDW 12.8 % (11.6-15.6) 01/27/18 07:00 Plt Count 246 K/MM3 (134-434) 01/27/18 07:00 MPV 9.8 fl (7.5-11.1) 01/27/18 07:00 Sodium 141 mmol/L (136-145) 01/27/18 07:00 Potassium 3.9 mmol/L (3.5-5.1) 01/27/18 07:00 Chloride 108 mmol/L (98-107) H 01/27/18 07:00 Carbon Dioxide 29 mmol/L (21-32) 01/27/18 07:00 Anion Gap 4 MMOL/L (8-16) L 01/27/18 07:00 BUN 14 mg/dL (7-18) 01/27/18 07:00 Creatinine 0.5 mg/dL (0.55-1.02) L 01/27/18 07:00 Creat Clearance w eGFR > 60 (>60) 01/27/18 07:00 Random Glucose 101 mg/dL (74-106) 01/27/18 07:00 Calcium 8.1 mg/dL (8.5-10.1) L 01/27/18 07:00 Total Bilirubin < 0.1 mg/dL (0.2-1.0) L 01/27/18 07:00 AST 12 U/L (15-37) L 01/27/18 07:00 ALT 37 U/L (12-78) 01/27/18 07:00 Alkaline Phosphatase 88 U/L (45-117) 01/27/18 07:00 Total Protein 5.7 g/dl (6.4-8.2) L 01/27/18 07:00 Albumin 2.9 g/dl (3.4-5.0) L 01/27/18 07:00 Urine Color Yellow 01/26/18 23:22 Urine Appearance Cloudy 01/26/18 23:22 Urine pH 5.0 (5.0-8.0) D 01/26/18 23:22 Ur Specific [place] 1.013 (1.001-1.035) 01/26/18 23:22 Urine Protein Negative (NEGATIVE) 01/26/18 23:22 Urine Glucose (UA) Negative (NEGATIVE) 01/26/18 23:22 Urine Ketones Trace (NEGATIVE) H 01/26/18 23:22 Urine Blood 1+ (NEGATIVE) H 01/26/18 23:22 Urine Nitrite Negative (NEGATIVE) 01/26/18 23:22 Urine Bilirubin Negative (<2.0 mg/dL) 01/26/18 23:22 Urine Urobilinogen Negative mg/dL (0.2-1.0) 01/26/18 23:22 Ur Leukocyte Esterase Negative (NEGATIVE) 01/26/18 23:22 Urine WBC (Auto) 10 /hpf (3-5) 01/26/18 23:22 Urine RBC (Auto) <1 /hpf (0-3) 01/26/18 23:22 Ur Epithelial Cells Moderate /HPF (FEW) 01/26/18 23:22 Urine Bacteria Rare /hpf (NONE SEEN) 01/26/18 23:22 Hyaline Casts 1 /lpf 01/26/18 23:22 Urine Mucus Many 01/26/18 23:22 RPR Titer Nonreactive (NONREACTIVE) 01/27/18 07:00 lab noted - Treatment Hospital Course: Detox Protocol Followed, Detoxed Safely, Responded well, Discharged Condition Good, Rehab Referral Accepted Patient has Accepted a Rehab Referral to: [facility] for mental medical and addiction issue - Medication Discharge Medications: Ambulatory Orders Quetiapine Fumarate [Seroquel -] 50 mg PO HS #30 tablet 01/27/18 Bupropion HCl [Wellbutrin -] 75 mg PO DAILY 01/29/18 hydrOXYzine PAMOATE [Vistaril -] 50 mg PO Q6H PRN #30 capsule 01/29/18 Ranitidine [Zantac -] 150 mg PO BID #60 tablet 01/31/18 - Diagnosis (1) Bipolar II disorder Status: Suspected (2) Opioid dependence with withdrawal Status: Acute (3) Weight loss Status: Acute (4) Nicotine dependence Status: Acute Qualifiers: Nicotine product type: cigarettes Substance use status: in withdrawal Qualified Code(s): F17.213 - Nicotine dependence, cigarettes, with withdrawal - AMA Did Patient Leave Against Medical Advice: No
[2018-01-31] MEDS: NAPROXEN 500 MG TABLET (FP) PO SCH (09:26)
[2018-01-31] MEDS: PRENATAL VITAMINS W/ FOLIC ACID TABLET (FP) PO SCH (09:27)
[2018-01-31] MEDS: buPROPion HCL 75 MG TABLET PO SCH (09:27)
[2018-01-31] MEDS: RANITIDINE HCL 150 MG TABLET (FP) PO SCH (09:27)
[2018-01-31] MEDS: BACITRACIN 0.9 GM PACKET TP SCH (09:28)
[2018-01-31 09:40] VITALS: BP 104/68; PULSE 96; TEMP 97.9
[2018-01-31] MEDS: LIDOCAINE 5% TOPICAL PATCH TP SCH (10:34)
== END 2018-01-31 09:47 | disposition home or self-care (01) | DRG 773 ==
LOC: YASAS 08:09 → Y6N 17:24
PROC: HZ2ZZZZ Detoxification Services for Substance Abuse Treatment (ICD-10-PCS; principal; 2018-01-26)
DX: F11.23 Opioid dependence with withdrawal (principal); F10.230 Alcohol dependence with withdrawal, uncomplicated; F17.213 Nicotine dependence, cigarettes, with withdrawal; F31.81 Bipolar II disorder; F41.9 Anxiety disorder, unspecified; F39 Unspecified mood [affective] disorder; F99 Mental disorder, not otherwise specified; R63.4 Abnormal weight loss; Z68.22 Body mass index [BMI] 22.0-22.9, adult; Z98.82 Breast implant status
CPT/HCPCS: 36415; 80053; 81003; 81015; 85027; 86593; 93005; 93010

== ENCOUNTER 2018-04-23 15:10 | Inpatient (IN) | payer OTHER ==
[2018-04-23 16:59] VITALS: BMI 23.3
[2018-04-23] MEDS ORDERED: METHADONE HCL 10 MG TABLET (FOR DETOX USE ONLY) PO ONE ×2 (23:00→23:15)
--- NOTE | 2018-04-23 23:04 | HP ---
COWS - Scale Resting Pulse: 1= [place] 81-100 Sweatin=Flushed/Facial Moisture Restless Observation: 1= Difficult to Sit Still Pupil Size: 1= Pupils >than Normal Bone or Joint Aches: 4=Acute Joint/Muscle Pain Runny Nose/ Eye Tearin= Runny Nose/Eyes GI Upset > 30mins: 3= Vomiting/Diarrhea (vomiting x 8, diarrhea x 5) Tremor Observation: 2= Slight Tremor Visible Yawning Observation: 0= None Anxiety or Irritability: 2=Irritable/Anxious Goose Flesh Skin: 0=Smooth Skin COWS Score: 18 CIWA Score Nausea/Vomitin Muscle Tremors: 4-Moderate,w/Arms Extend Anxiety: 3 Agitation: 3 Paroxysmal Sweats: 2 Orientation: 0-Oriented Tacttile Disturbances: 0-None Auditory Disturbances: 0-None Visual Disturbances: 0-None Headache: 2-Mild CIWA-Ar Total Score: 17 - Admission Criteria OASAS Guidelines: Admission for Medically Managed Detox: Requires at least one of the followin. CIWA greater than 12 2. Seizures within the past 24 hours 3. Delirium tremens within the past 24 hours 4. Hallucinations within the past 24 hours 5. Acute intervention needed for co occurring medical disorder 6. Acute intervention needed for co occurring psychiatric disorder 7. Severe withdrawal that cannot be handled at a lower level of care (continued vomiting, continued diarrhea, abnormal vital signs) requiring intravenous medication and/or fluids 8. Admission [facility] Chief Complaint: Alcohol and opiate withdrawal symptoms Allergies/Adverse Reactions: Allergies Allergy/AdvReac Type Severity Reaction Status Date / Time No Known Allergies Allergy Verified 01/26/18 16:28 History of Present Illness: 43 years old female with a long history of alcohol dependence and four years of opiate dependence is seeking admission to detox. Patient was in detox 01/26/2018 - 01/31/2018. She has medical history of asthma, depression and anxiety. She denies suicidal ideation at this time. Exam Limitations: No Limitations - Ebola screening Have you traveled outside of the country in the last 21 days: No Have you had contact with anyone from an Ebola affected area: No Have you been sick,other than usual withdrawal symptoms: No Do you have a fever: No - Review of Systems Constitutional: Chills, Loss of Appetite, Malaise, Night Sweats, Changes in sleep, Weakness EENT: reports: Nose Congestion Respiratory: reports: No Symptoms reported Cardiac: reports: No Symptoms Reported GI: reports: Diarrhea, Nausea, Poor Appetite, Poor Fluid Intake, Vomiting, Abdominal cramping : reports: No Symptoms Reported Musculoskeletal: reports: Back Pain, Joint Pain, Muscle Pain, Muscle Weakness Integumentary: reports: Dryness, Flushing Neuro: reports: Headache, Tremors, Weakness Endocrine: reports: No Symptoms Reported Hematology: reports: No Symptoms Reported Psychiatric: reports: Mood/Affect Appropiate, Orientated x3, Anxious, Depressed Other Systems: Reviewed and Negative Patient History - Patient Medical History Hx Anemia: No Hx Asthma: Yes (Albuterol) Hx Chronic Obstructive Pulmonary Disease (COPD): No Hx Cancer: No Hx Cardiac Disorders: No Hx Congestive Heart Failure: No Hx Hypertension: No Hx Hypercholesterolemia: No Hx Pacemaker: No HX Cerebrovascular Accident: No Hx Seizures: No Hx Dementia: No Hx Diabetes: No Hx Gastrointestinal Disorders: No Hx Liver Disease: No Hx Genitourinary Disorders: No Hx Sexually Transmitted Disorders: No Hx Renal Disease (ESRD): No Hx Thyroid Disease: No Hx Human Immunodeficiency Virus (HIV): No (Negative 2017) Hx Hepatitis C: No Hx Depression: Yes (Depakote ) Hx Suicide Attempt: No (Denies suicidal ideation at this time) Hx Bipolar Disorder: Yes Hx Schizophrenia: No Other Medical History: ANXIETY - Not on medication - Patient Surgical History Past Surgical History: Yes Hx Neurologic Surgery: No Hx Cataract Extraction: No Hx Cardiac Surgery: No Hx Lung Surgery: No Hx Breast Surgery: Yes (bilateral augmentation, 04/2017/bilateral lift, 01/19/2018 ) Hx Breast Biopsy: No Hx Abdominal Surgery: No Hx Appendectomy: No Hx Cholecystectomy: No Hx Genitourinary Surgery: No Hx Section: No Hx Orthopedic Surgery: No Hx Hysterectomy: No Other Surgical History: ectopic Anesthesia Reaction: No - PPD History Previous Implant?: Yes Documented Results: Negative w/proof Implanted On Prior [facility] Admission?: Yes Date: 08/15/17 Results: 00mm PPD to be Administered?: No - Reproductive History Patient is a Female of Child Bearing Age (11 -55 yrs old): Yes Last Menstrual Period: 04/13/18 Patient : No - Smoking Cessation Smoking history: Current every day smoker Have you smoked in the past 12 months: Yes Aproximately how many cigarettes per day: 5 Hx Chewing Tobacco Use: No Initiated information on smoking cessation: Yes 'Breaking Loose' booklet given: 04/23/18 - Substance & Tx. History Hx Alcohol Use: Yes Hx Substance Use: Yes Substance Use Type: Alcohol, Heroin, Opiates Hx Substance Use Treatment: Yes ([facility]) - Substances Abused Alcohol Route: Oral Frequency: Daily Amount used: BEER- 6 pack Age of first use: 20 Date of Last Use: 04/23/18 Cocaine Route: sniff Frequency: 1-2 times per week Age of first use: 30 Date of Last Use: 04/21/18 percocet Route: Oral Frequency: Daily Amount used: 7 to 8 pills of 10 mg Age of first use: 40 Date of Last Use: 04/21/18 Family Disease History - Family Disease History Family Disease History: CA: Sister (Colon - ), Other: Father (h/o suicide or od, heroin) Admission Physical Exam S - Vital Signs Vital Signs: Vital Signs - 24 hr 04/23/18 16:57 Temperature 96.3 F L Pulse Rate 93 H Respiratory 18 Rate Blood Pressure 122/85 - Physical General Appearance: Yes: Mild Distress, Moderate Distress, Tremorous, Irritable , Sweating, Anxious, Other HEENTM: Yes: EOMI, Normal ENT Inspection, Normocephalic, Normal Voice, [place] Respiratory: Yes: Lungs Clear, Normal Breath Sounds, No Respiratory Distress Neck: Yes: Supple Breast: Yes: Breast Exam Deferred Cardiology: Yes: Regular Rhythm, Regular Rate Abdominal: Yes: Normal Bowel Sounds, Soft Genitourinary: Yes: Within Normal Limits Back: Yes: Normal Inspection Musculoskeletal: Yes: Back pain, Joint swelling, Muscle Pain Extremities: Yes: Tremors Neurological: Yes: chainstitch pants outseamer II-XII NML intact, Alert, Normal Mood/Affect Integumentary: Yes: Warm Lymphatic: Yes: Within Normal Limits - Diagnostic (1) Depression Current Visit: Yes Status: Chronic Qualifiers: Depression Type: unspecified Qualified Code(s): F32.9 - Major depressive disorder, single episode, unspecified (2) Asthma Current Visit: Yes Status: Chronic Qualifiers: Asthma severity: mild Asthma persistence: intermittent (3) Anxiety disorder Current Visit: Yes Status: Chronic (4) Nicotine dependence Current Visit: Yes Status: Chronic Qualifiers: Nicotine product type: cigarettes Substance use status: uncomplicated Qualified Code(s): F17.210 - Nicotine dependence, cigarettes, uncomplicated (5) Opioid dependence with withdrawal Current Visit: Yes Status: Chronic Cleared for Admission [facility] - Detox or Rehab [facility] Level of Care: Medically Managed Detox Regimen/Protocol: Methadone/Librium [facility] Breath Alcohol Content Breath Alcohol Content: 0 Urine Pregancy Test - Result Urine Test Results: Negative- NO Line Present Urine Drug Screen - Results Drug Screen Negative: No Urine Drug Screen Results: FROILAN-Cocaine, MET-Methamphetamine, BAR-Barbiturates, BZO-Benzodiazepines, OXY-Oxycodone
[2018-04-23] MEDS ORDERED: chlordiazePOXIDE HCL 25 MG CAPSULE PO PRN (23:15)
[2018-04-23] MEDS ORDERED: guaiFENesin/D-METHORPHAN HB 10 ML UNIT-DOSE CUPS PO PRN (23:15)
[2018-04-23] MEDS ORDERED: MENTHOL/PHENOL 1 EACH UD MM PRN (23:15)
[2018-04-23] MEDS ORDERED: MAGNESIUM HYDROX 2400MG/30ML ORAL SUSPENSION 30 ML CUP PO PRN (23:15)
[2018-04-23] MEDS ORDERED: P-EPHED 60MG/TRIPROLIDI 2.5MG TABLET PO PRN (23:15)
[2018-04-23] MEDS ORDERED: NICOTINE POLACRILEX 2 MG GUM BUC PRN (23:15)
[2018-04-23] MEDS ORDERED: MAGNESIUM CITRATE 300 ML BOTTLE PO PRN (23:15)
[2018-04-23] MEDS ORDERED: LOPERAMIDE HCL 2 MG CAPSULE PO PRN (23:15)
[2018-04-23] MEDS ORDERED: MAG HYDROX/AL HYDROX/SIMETH 30 ML UNIT-DOSE CUP PO PRN (23:15)
[2018-04-24] MEDS: chlordiazePOXIDE HCL 25 MG CAPSULE PO SCH ×5 (00:55→22:04)
[2018-04-24] MEDS: MELATONIN 5 MG TABLETS PO PRN ×2 (00:56→22:04)
[2018-04-24] MEDS ORDERED: METHADONE HCL 10 MG TABLET (FOR DETOX USE ONLY) PO SCH (10:00)
[2018-04-24] MEDS: PRENATAL VITAMINS W/ FOLIC ACID TABLET (FP) PO SCH (10:38)
[2018-04-24] MEDS: NICOTINE 14 MG/24 HOURS TOPICAL PATCH TD SCH (10:40)
[2018-04-24 11:06] LABS: HEMATOCRIT 36.4 % (32.4-45.2); HEMOGLOBIN 11.7 GM/dL (10.7-15.3); MCH 29.8 pg (25.7-33.7); MCHC 32.2 g/dl (32.0-36.0); MEAN CELL VOLUME 92.4 fl (80-96); MEAN PLT VOLUME 9.9 fl (7.5-11.1); PLATELET COUNT 204 K/MM3 (134-434); RBC 3.93 M/mm3 (3.60-5.2); RDW 13.4 % (11.6-15.6); WHITE BLOOD COUNT 6.5 K/mm3 (4.0-10.0)
[2018-04-24 11:40] LABS: ALK PHOS 62 U/L (45-117); ANION GAP 8 MMOL/L (8-16); BILIRUBIN,TOTAL 0.2 mg/dL (0.2-1); BLOOD UREA NITROGEN 14 mg/dL (7-18); CALCIUM 7.7 mg/dL (8.5-10.1); CHLORIDE 108 mmol/L (98-107); CO2 26 mmol/L (21-32); CREATININE 0.6 mg/dL (0.55-1.3); GLUCOSE,RANDOM 100 mg/dL (74-106); POTASSIUM 4.1 mmol/L (3.5-5.1); SGOT/AST 14 U/L (15-37); SGPT/ALT 19 U/L (13-61); SODIUM 142 mmol/L (136-145); TOT PROT 5.8 g/dl (6.4-8.2)
--- NOTE | 2018-04-24 14:27 | PN ---
S CIWA - CIWA Score Nausea/Vomitin Muscle Tremors: 2 Anxiety: 1-Mildly Anxious Agitation: 2 Paroxysmal Sweats: 2 Orientation: 0-Oriented Tacttile Disturbances: 2-Mild Itch/Numbness/Burn Auditory Disturbances: 1-Very Mild Visual Disturbances: 0-None Headache: 2-Mild CIWA-Ar Total Score: 15 [facility] COWS - Scale Resting Pulse: 1= [place] 81-100 Sweatin= Chills/Flushing Restless Observation: 1= Difficult to Sit Still Pupil Size: 0= Normal to Room Light Bone or Joint Aches: 2= Severe Diffuse Aches Runny Nose/ Eye Tearin= Nasal Congestion GI Upset > 30mins: 2= Nausea/Diarrhea Tremor Observation of Outstretched Hands: 2= Slight Tremor Visible Yawning Observation: 0= None Anxiety or Irritability: 1=Feels Anxious/Irritable Goose Flesh Skin: 0=Smooth Skin COWS Score: 11 S Progress Note (SOAP) Subjective: N/D, diarrhea,generalized pain and fatigue Objective: 04/24/18 14:26 Vital Signs - 8 hr 04/24/18 04/24/18 04/24/18 07:31 09:37 14:07 Temperature 97.7 F 97.9 F 98.4 F Pulse Rate 82 92 H 96 H Respiratory 18 16 18 Rate Blood Pressure 110/62 115/72 97/77 Laboratory Last Values WBC 6.5 K/mm3 (4.0-10.0) 04/24/18 07:50 RBC 3.93 M/mm3 (3.60-5.2) 04/24/18 07:50 Hgb 11.7 GM/dL (10.7-15.3) 04/24/18 07:50 Hct 36.4 % (32.4-45.2) 04/24/18 07:50 MCV 92.4 fl (80-96) 04/24/18 07:50 MCH 29.8 pg (25.7-33.7) 04/24/18 07:50 MCHC 32.2 g/dl (32.0-36.0) 04/24/18 07:50 RDW 13.4 % (11.6-15.6) 04/24/18 07:50 Plt Count 204 K/MM3 (134-434) 04/24/18 07:50 MPV 9.9 fl (7.5-11.1) 04/24/18 07:50 Sodium 142 mmol/L (136-145) 04/24/18 07:50 Potassium 4.1 mmol/L (3.5-5.1) 04/24/18 07:50 Chloride 108 mmol/L (98-107) H 04/24/18 07:50 Carbon Dioxide 26 mmol/L (21-32) 04/24/18 07:50 Anion Gap 8 MMOL/L (8-16) 04/24/18 07:50 BUN 14 mg/dL (7-18) 04/24/18 07:50 Creatinine 0.6 mg/dL (0.55-1.3) 04/24/18 07:50 Creat Clearance w eGFR > 60 (>60) 04/24/18 07:50 Random Glucose 100 mg/dL (74-106) 04/24/18 07:50 Calcium 7.7 mg/dL (8.5-10.1) L 04/24/18 07:50 Total Bilirubin 0.2 mg/dL (0.2-1) 04/24/18 07:50 AST 14 U/L (15-37) L 04/24/18 07:50 ALT 19 U/L (13-61) 04/24/18 07:50 Alkaline Phosphatase 62 U/L (45-117) 04/24/18 07:50 Total Protein 5.8 g/dl (6.4-8.2) L 04/24/18 07:50 Albumin 3.0 g/dl (3.4-5.0) L 04/24/18 07:50 RPR Titer Nonreactive (NONREACTIVE) 04/24/18 07:50 Labs noted Assessment: 04/24/18 14:26 Withdrawal sx Plan: Continue detox
[2018-04-24] MEDS: ACETAMINOPHEN 325 MG TABLET (FP) PO PRN (18:06)
[2018-04-24] MEDS: IBUPROFEN 400 MG TABLET (FP) PO PRN (20:00)
[2018-04-24] MEDS: THIAMINE HCL 100 MG TABLET (FP) PO SCH (22:04)
[2018-04-25] MEDS: IBUPROFEN 400 MG TABLET (FP) PO PRN ×3 (04:49→22:18)
[2018-04-25] MEDS: chlordiazePOXIDE HCL 25 MG CAPSULE PO SCH ×3 (04:49→17:06)
[2018-04-25] MEDS: METHADONE HCL 5 MG TABLET (FOR DETOX USE ONLY) PO SCH (10:22)
[2018-04-25] MEDS: PRENATAL VITAMINS W/ FOLIC ACID TABLET (FP) PO SCH (10:22)
[2018-04-25] MEDS: NICOTINE 14 MG/24 HOURS TOPICAL PATCH TD SCH (10:24)
[2018-04-25] MEDS ORDERED: COLLOIDAL OATMEAL 1 BAR EACH TP PRN (13:43)
[2018-04-25] MEDS ORDERED: hydrOXYzine PAMOATE 25 MG CAPSULE (FP) PO ONE (13:45)
--- NOTE | 2018-04-25 13:51 | PN ---
[facility] CIWA - CIWA Score Nausea/Vomitin-Mild Nausea/No Vomiting Muscle Tremors: 3 Anxiety: 2 Agitation: 2 Paroxysmal Sweats: 1-Minimal Palms Moist Orientation: 0-Oriented Tacttile Disturbances: 1-Very Mild Itch/Numbness Auditory Disturbances: 0-None Visual Disturbances: 0-None Headache: 1-Very Mild CIWA-Ar Total Score: 11 [facility] COWS - Scale Resting Pulse: 1= [place] 81-100 Sweatin= Chills/Flushing Restless Observation: 0= Sits Still Pupil Size: 0= Normal to Room Light Bone or Joint Aches: 2= Severe Diffuse Aches Runny Nose/ Eye Tearin= Nasal Congestion GI Upset > 30mins: 2= Nausea/Diarrhea Tremor Observation of Outstretched Hands: 1= Tremor Wilmer, Not Seen Yawning Observation: 1= 1-2x During Session Anxiety or Irritability: 1=Feels Anxious/Irritable Goose Flesh Skin: 0=Smooth Skin COWS Score: 10 S Progress Note (SOAP) Subjective: tremor sweat restlessness trouble sleep at night patient stated that she is taking seruqual 25 mg po bid patient requests to be seen by a psychiatrist Objective: 04/25/18 13:48 Vital Signs Temperature 98.1 F 04/25/18 11:39 Pulse Rate 82 04/25/18 11:39 Respiratory Rate 16 04/25/18 11:39 Blood Pressure 108/81 04/25/18 11:39 O2 Sat by Pulse Oximetry (%) Laboratory Last Values WBC 6.5 K/mm3 (4.0-10.0) 04/24/18 07:50 RBC 3.93 M/mm3 (3.60-5.2) 04/24/18 07:50 Hgb 11.7 GM/dL (10.7-15.3) 04/24/18 07:50 Hct 36.4 % (32.4-45.2) 04/24/18 07:50 MCV 92.4 fl (80-96) 04/24/18 07:50 MCH 29.8 pg (25.7-33.7) 04/24/18 07:50 MCHC 32.2 g/dl (32.0-36.0) 04/24/18 07:50 RDW 13.4 % (11.6-15.6) 04/24/18 07:50 Plt Count 204 K/MM3 (134-434) 04/24/18 07:50 MPV 9.9 fl (7.5-11.1) 04/24/18 07:50 Sodium 142 mmol/L (136-145) 04/24/18 07:50 Potassium 4.1 mmol/L (3.5-5.1) 04/24/18 07:50 Chloride 108 mmol/L (98-107) H 04/24/18 07:50 Carbon Dioxide 26 mmol/L (21-32) 04/24/18 07:50 Anion Gap 8 MMOL/L (8-16) 04/24/18 07:50 BUN 14 mg/dL (7-18) 04/24/18 07:50 Creatinine 0.6 mg/dL (0.55-1.3) 04/24/18 07:50 Creat Clearance w eGFR > 60 (>60) 04/24/18 07:50 Random Glucose 100 mg/dL (74-106) 04/24/18 07:50 Calcium 7.7 mg/dL (8.5-10.1) L 04/24/18 07:50 Total Bilirubin 0.2 mg/dL (0.2-1) 04/24/18 07:50 AST 14 U/L (15-37) L 04/24/18 07:50 ALT 19 U/L (13-61) 04/24/18 07:50 Alkaline Phosphatase 62 U/L (45-117) 04/24/18 07:50 Total Protein 5.8 g/dl (6.4-8.2) L 04/24/18 07:50 Albumin 3.0 g/dl (3.4-5.0) L 04/24/18 07:50 RPR Titer Nonreactive (NONREACTIVE) 04/24/18 07:50 lab noted low Ca++ Assessment: 04/25/18 13:50 withdrawal sx anxiety hypocalcemia Plan: continue detox oscal bid psychiatrist referral for possible resume seroquel 25 mg po bid vistaril 25 mg x 1 for anxiety
[2018-04-25] MEDS: ACETAMINOPHEN 325 MG TABLET (FP) PO PRN (14:17)
[2018-04-25] MEDS: CALCIUM 250MG/VIT-D 125 UNITS 1 COMBO TABLET PO SCH ×2 (14:27→22:17)
[2018-04-25] MEDS: TRIAMCINOLONE ACET 0.1% OINT 15 GM TUBE TP SCH (15:39)
--- NOTE | 2018-04-25 16:57 | PN ---
[facility] Progress Note Note: Psychiatric nurse practitioner software configuration specialist note: Patient reports difficulty sleeping and is requesting seroquel for insomnia. Chart reviewed. Pharmacy claims reviewed and noted a prescription of seroquel on March 16, 2018. Patient also accepted seroquel 50qhs while in detox on 2017. Vitals signs within normal limits. Seroquel 50mg qhs ordered.
[2018-04-25] MEDS: MELATONIN 5 MG TABLETS PO PRN (22:17)
[2018-04-25] MEDS: QUEtiapine FUMARATE 50 MG TABLET PO SCH (22:17)
[2018-04-25] MEDS: THIAMINE HCL 100 MG TABLET (FP) PO SCH (22:17)
[2018-04-25] MEDS: chlordiazePOXIDE 5 MG CAPSULE PO SCH (22:18)
[2018-04-26] MEDS: chlordiazePOXIDE 5 MG CAPSULE PO SCH ×3 (06:53→17:32)
[2018-04-26] MEDS: ACETAMINOPHEN 325 MG TABLET (FP) PO PRN (07:09)
--- NOTE | 2018-04-26 07:43 | CONSULT ---
[facility] Psychiatric Consult - Data Date of interview: 04/26/18 Admission source: [facility] Identifying data: This is a 43 years old female, single mothe rof one, unemployed, living alone, on SSI support, with history of Bipolaqr Disorder, 0with no psychiatric hospitalization history, with history of Opioids, Alcohol , Cocaine and Nicoptine dependence, reporting withdrawal symptoms and seeking detox. Substance Abuse History: Smoking history: Current every day smoker. Have you smoked in the past 12 months: Yes. Aproximately how many cigarettes per day: 5. Hx Chewing Tobacco Use: No. Initiated information on smoking cessation: Yes. 'Breaking Loose' booklet given: 04/23/18. - Substance & Tx. History. Hx Alcohol Use: Yes. Hx Substance Use: Yes. Substance Use Type: Alcohol, Heroin, Opiates. Hx Substance Use Treatment: Yes ([facility] - Substances Abused. Alcohol. Route: Oral. Frequency: Daily. Amount used: BEER- 6 pack. Age of first use: 20. Date of Last Use: 04/23/18. Cocaine. Route: sniff. Frequency: 1-2 times per week. Age of first use: 30. Date of Last Use: . percocet. Route: Oral. Frequency: Daily. Amount used: 7 to 8 pills of 10 mg. Age of first use: 40. Date of Last Use: 04/21/18 Medical History: Weight loss history, Asthma Psychiatric History: Patient reports to carry Bipolar Disorder with no psychiatric hospitalization history, reports taking prior to admission: Seroquel 50mg po qhs. Vistaril 50mg po q4 prn for agitation and anxiety. Deneis suicidal and homicidal history Physical/Sexual Abuse/Trauma History: Denies, unclear Additional Comment: Seroquel 50mg po qhs. Vistaril 50mg po q4 prn for agitation and anxiety Mental Status Exam - Mental Status Exam Alert and Oriented to: Person Cognitive Function: Fair Patient Appearance: Unkempt Mood: Sad Affect: Flat Patient Behavior: Sedated Speech Pattern: Delayed Voice Loudness: Mildly Soft/Quiet Thought Process: Circumstantial Thought Disorder: Being Controlled Hallucinations: Denies Suicidal Ideation: Denies Homicidal Ideation: Denies Insight/Judgement: Fair Sleep: Difficulty falling asleep Appetite: Weight loss Muscle strength/Tone: Mild Hypotonicity Gait/Station: Shuffling Additional Comments: Seroquel 50mg po qhs. Vistaril 50mg po q4 prn for agitation and anxiety Psychiatric Findings - Problem List (Muse 1, 2,3) (1) Uncomplicated alcohol withdrawal Current Visit: Yes Status: Acute (2) Anxiety disorder Current Visit: Yes Status: Chronic Qualifiers: Anxiety disorder type: generalized anxiety disorder Qualified Code(s): F41.1 - Generalized anxiety disorder (3) Asthma Current Visit: Yes Status: Chronic Qualifiers: Asthma severity: mild Asthma persistence: intermittent (4) Nicotine dependence Current Visit: Yes Status: Chronic Qualifiers: Nicotine product type: cigarettes Substance use status: uncomplicated Qualified Code(s): F17.210 - Nicotine dependence, cigarettes, uncomplicated (5) Opioid dependence with withdrawal Current Visit: Yes Status: Chronic (6) H/O bilateral breast implants Current Visit: No Status: Acute (7) Insomnia Current Visit: No Status: Acute Qualifiers: Insomnia type: alcohol-induced Qualified Code(s): F10.982 - Alcohol use, unspecified with alcohol-induced sleep disorder (8) Weight loss Current Visit: No Status: Acute (9) Bipolar 1 disorder Current Visit: No Status: Chronic - Initial Treatment Plan Initial Treatment Plan: Seroquel 50mg po qhs. Vistaril 50mg po q4 prn for agitation and anxiety
[2018-04-26] MEDS ORDERED: hydrOXYzine PAMOATE 50 MG CAPSULE (FP) PO PRN (08:10)
[2018-04-26] MEDS: TRIAMCINOLONE ACET 0.1% OINT 15 GM TUBE TP SCH (10:12)
[2018-04-26] MEDS: METHADONE HCL 5 MG TABLET (FOR DETOX USE ONLY) PO SCH (10:13)
[2018-04-26] MEDS: PRENATAL VITAMINS W/ FOLIC ACID TABLET (FP) PO SCH (10:13)
[2018-04-26] MEDS: CALCIUM 250MG/VIT-D 125 UNITS 1 COMBO TABLET PO SCH ×2 (10:16→22:34)
[2018-04-26] MEDS: IBUPROFEN 400 MG TABLET (FP) PO PRN (10:16)
[2018-04-26] MEDS: NICOTINE 14 MG/24 HOURS TOPICAL PATCH TD SCH (10:17)
--- NOTE | 2018-04-26 10:51 | PN ---
[facility] Progress Note (SOAP) Subjective: body aches headache sweats Objective: 04/26/18 10:50 Vital Signs Temperature 98.2 F 04/26/18 09:52 Pulse Rate 86 04/26/18 09:52 Respiratory Rate 18 04/26/18 09:52 Blood Pressure 107/62 04/26/18 09:52 O2 Sat by Pulse Oximetry (%) aaox3 ambulating no acute distress Assessment: 04/26/18 10:50 withdrawal sx Plan: continue detox increase fluids imitrex x 1 discharge in am
[2018-04-26] MEDS ORDERED: SUMAtriptan SUCCINATE 25 MG TABLET PO ONE (11:30)
[2018-04-26] MEDS: TRIAMCINOLONE 0.1% TP SCH ×2 (13:06→22:35)
[2018-04-26] MEDS: diphenhydrAMINE HCL 25 MG CAPSULE (FP) PO PRN ×2 (14:23→22:34)
[2018-04-26] MEDS ORDERED: QUEtiapine FUMARATE 50 MG TABLET PO SCH (22:00)
[2018-04-26] MEDS: chlordiazePOXIDE HCL 10 MG CAPSULE PO SCH (22:34)
[2018-04-26] MEDS: QUEtiapine FUMARATE 50 MG TABLET PO SCH (22:35)
[2018-04-26] MEDS: THIAMINE HCL 100 MG TABLET (FP) PO SCH (22:36)
[2018-04-27] MEDS: chlordiazePOXIDE HCL 10 MG CAPSULE PO SCH ×3 (06:17→17:43)
[2018-04-27] MEDS: diphenhydrAMINE HCL 25 MG CAPSULE (FP) PO PRN ×3 (06:23→22:11)
[2018-04-27] MEDS ORDERED: METHADONE HCL 10 MG TABLET (FOR DETOX USE ONLY) PO SCH (10:00)
[2018-04-27] MEDS: CALCIUM 250MG/VIT-D 125 UNITS 1 COMBO TABLET PO SCH ×2 (10:18→22:10)
[2018-04-27] MEDS: PRENATAL VITAMINS W/ FOLIC ACID TABLET (FP) PO SCH (10:18)
[2018-04-27] MEDS: TRIAMCINOLONE 0.1% TP SCH ×2 (10:22→22:09)
[2018-04-27] MEDS: NICOTINE 14 MG/24 HOURS TOPICAL PATCH TD SCH (10:22)
[2018-04-27] MEDS: ACETAMINOPHEN 325 MG TABLET (FP) PO PRN (10:26)
[2018-04-27] MEDS ORDERED: FUROSEMIDE 20 MG TABLET (FP) PO ONE (14:31)
--- NOTE | 2018-04-27 14:31 | PN ---
[facility] Progress Note (SOAP) Subjective: headache feet swelling anxiety Objective: 04/27/18 14:29 Vital Signs Temperature 98.7 F 04/27/18 10:03 Pulse Rate 103 H 04/27/18 10:03 Respiratory Rate 18 04/27/18 10:03 Blood Pressure 108/71 04/27/18 10:03 O2 Sat by Pulse Oximetry (%) aaox3 ambulating no acute distress Assessment: 04/27/18 14:30 withdrawal sx Plan: continue detox monitor fluid intake lasix 20mg x one ordered encouraged keep legs elevated imitrex 50mg x one d/c in am
[2018-04-27] MEDS ORDERED: SUMAtriptan SUCCINATE 50 MG TABLET PO SCH (14:45)
[2018-04-27] MEDS: THIAMINE HCL 100 MG TABLET (FP) PO SCH (22:09)
[2018-04-27] MEDS: MELATONIN 5 MG TABLETS PO PRN (22:10)
[2018-04-27] MEDS: QUEtiapine FUMARATE 50 MG TABLET PO SCH (22:10)
[2018-04-28] MEDS: ACETAMINOPHEN 325 MG TABLET (FP) PO PRN (05:02)
[2018-04-28] MEDS ORDERED: METHADONE HCL 5 MG TABLET (FOR DETOX USE ONLY) PO SCH (06:00)
--- NOTE | 2018-04-28 09:06 | DS ---
[facility] Detox Discharge Summary Admission Date: 04/23/18 Discharge Date: 04/28/18 - History Present History: Alcohol Dependence, Opioid Dependence - Physical Exam Results Vital Signs: Vital Signs Temperature 98.2 F 04/28/18 06:00 Pulse Rate 97 H 04/28/18 06:00 Respiratory Rate 04/28/18 06:00 Blood Pressure 113/78 04/28/18 06:00 O2 Sat by Pulse Oximetry (%) - Treatment Hospital Course: Detox Protocol Followed, Detoxed Safely, Responded well, Discharged Condition Good, Rehab Referral Accepted - Medication Discharge Medications: Ambulatory Orders Bupropion HCl [Wellbutrin -] 75 mg PO DAILY 01/29/18 Ranitidine [Zantac -] 150 mg PO BID #60 tablet 01/31/18 Quetiapine Fumarate [Seroquel -] 50 mg PO HS #30 tablet 04/26/18 hydrOXYzine PAMOATE [Vistaril -] 50 mg PO Q6H PRN #90 capsule 04/26/18 - Diagnosis (1) Uncomplicated alcohol withdrawal Current Visit: Yes Status: Chronic (2) Anxiety disorder Current Visit: Yes Status: Chronic Qualifiers: Anxiety disorder type: generalized anxiety disorder Qualified Code(s): F41.1 - Generalized anxiety disorder (3) Asthma Current Visit: Yes Status: Chronic Qualifiers: Asthma severity: mild Asthma persistence: intermittent (4) Depression Current Visit: Yes Status: Chronic Qualifiers: Depression Type: major depressive disorder (5) Nicotine dependence Current Visit: Yes Status: Chronic Qualifiers: Nicotine product type: cigarettes Substance use status: uncomplicated Qualified Code(s): F17.210 - Nicotine dependence, cigarettes, uncomplicated (6) Opioid dependence with withdrawal Current Visit: Yes Status: Chronic (7) Dehydration Current Visit: No Status: Acute (8) H/O bilateral breast implants Current Visit: No Status: Acute (9) Insomnia Current Visit: No Status: Acute Qualifiers: Insomnia type: alcohol-induced Qualified Code(s): F10.982 - Alcohol use, unspecified with alcohol-induced sleep disorder (10) Mood disorder Current Visit: No Status: Acute (11) Psychiatric disorder Current Visit: No Status: Acute (12) Weight loss Current Visit: No Status: Acute (13) Bipolar 1 disorder Current Visit: No Status: Chronic (14) Bipolar disorder Current Visit: No Status: Chronic (15) Bipolar II disorder Current Visit: No Status: Suspected - AMA Did Patient Leave Against Medical Advice: No (referred to [facility])
[2018-04-28 09:59] VITALS: BP 119/73; PULSE 85; TEMP 98.4
[2018-04-28] MEDS: TRIAMCINOLONE 0.1% TP SCH (10:31)
[2018-04-28] MEDS: NICOTINE 14 MG/24 HOURS TOPICAL PATCH TD SCH (10:31)
[2018-04-28] MEDS: CALCIUM 250MG/VIT-D 125 UNITS 1 COMBO TABLET PO SCH (10:31)
[2018-04-28] MEDS: PRENATAL VITAMINS W/ FOLIC ACID TABLET (FP) PO SCH (10:31)
[2018-04-28] MEDS: diphenhydrAMINE HCL 25 MG CAPSULE (FP) PO PRN (10:33)
== END 2018-04-28 11:37 | disposition other institution (70) | DRG 773 ==
LOC: YASAS 15:10 → Y6N 21:39
PROC: HZ2ZZZZ Detoxification Services for Substance Abuse Treatment (ICD-10-PCS; principal; 2018-04-23)
DX: F11.23 Opioid dependence with withdrawal (principal); F10.230 Alcohol dependence with withdrawal, uncomplicated; F17.210 Nicotine dependence, cigarettes, uncomplicated; F31.81 Bipolar II disorder; F31.9 Bipolar disorder, unspecified; F39 Unspecified mood [affective] disorder; F99 Mental disorder, not otherwise specified; F41.1 Generalized anxiety disorder; F10.982 Alcohol use, unspecified with alcohol-induced sleep disorder; E86.0 Dehydration; J45.20 Mild intermittent asthma, uncomplicated; E83.51 Hypocalcemia; R63.4 Abnormal weight loss; Z68.23 Body mass index [BMI] 23.0-23.9, adult; Z98.82 Breast implant status
CPT/HCPCS: 36415; 80053; 85027; 86593

== ENCOUNTER 2018-04-28 11:32 | Inpatient (IN) | payer OTHER ==
[2018-04-28] MEDS: hydrOXYzine PAMOATE 50 MG CAPSULE (FP) PO PRN ×2 (15:34→21:40)
[2018-04-28] MEDS ORDERED: NICOTINE POLACRILEX 4 MG GUM BUC PRN (16:03)
[2018-04-28] MEDS ORDERED: MAGNESIUM HYDROX 2400MG/30ML ORAL SUSPENSION 30 ML CUP PO PRN (16:03)
[2018-04-28] MEDS ORDERED: guaiFENesin/D-METHORPHAN HB 10 ML UNIT-DOSE CUPS PO PRN (16:03)
[2018-04-28] MEDS ORDERED: LOPERAMIDE HCL 2 MG CAPSULE PO PRN (16:03)
[2018-04-28] MEDS ORDERED: IBUPROFEN 400 MG TABLET (FP) PO PRN (16:03)
[2018-04-28] MEDS ORDERED: MAG HYDROX/AL HYDROX/SIMETH 30 ML UNIT-DOSE CUP PO PRN (16:03)
[2018-04-28] MEDS ORDERED: MAGNESIUM CITRATE 300 ML BOTTLE PO PRN (16:03)
[2018-04-28] MEDS ORDERED: ACETAMINOPHEN 325 MG TABLET (FP) PO PRN (16:03)
[2018-04-28] MEDS ORDERED: P-EPHED 60MG/TRIPROLIDI 2.5MG TABLET PO PRN (16:03)
[2018-04-28] MEDS ORDERED: MENTHOL/PHENOL 1 EACH UD MM PRN (16:03)
--- NOTE | 2018-04-28 16:03 | HP ---
[facility] Rehab Assess/Revision - Admission History Admitted to Rehab from: [address] - Vital signs Vital Signs: Vital Signs Period Temp Pulse Resp BP Sys/Saldaña Pulse Ox Last 24 Hr 97.2 F 76 18 114/80 - Findings Detox History & Physical reviewed: Yes Concur with findings: Yes Inpatient Rehab Admission - Initial Determination Are CD services needed?: Yes Free of communicable disease: Yes Not in need of hospitalization: Yes - Rehab Admission Criteria Previous failed treatment: Yes Poor recovery environment: Yes Comorbidities: Yes Lacks judgement: Yes
[2018-04-28] MEDS: TRIAMCINOLONE ACET 0.1% CREAM 15 GM TUBE TP SCH (21:41)
[2018-04-28] MEDS: RANITIDINE HCL 150 MG TABLET (FP) PO SCH (21:42)
[2018-04-28] MEDS ORDERED: THIAMINE HCL 100 MG TABLET (FP) PO SCH (22:00)
[2018-04-28] MEDS ORDERED: MELATONIN 5 MG TABLETS PO PRN (22:00)
[2018-04-28] MEDS ORDERED: QUEtiapine FUMARATE 50 MG TABLET PO SCH (22:00)
[2018-04-29] MEDS: hydrOXYzine PAMOATE 50 MG CAPSULE (FP) PO PRN (06:27)
[2018-04-29 07:22] VITALS: BP 103/70; PULSE 85; TEMP 98.2
[2018-04-29] MEDS ORDERED: PT OWN MED DRAWER 7, Y5N ONE ×2 (08:43→10:06)
[2018-04-29] MEDS ORDERED: NICOTINE 21 MG/24 HOURS TOPICAL PATCH TD SCH (10:00)
[2018-04-29] MEDS ORDERED: PRENATAL VITAMINS W/ FOLIC ACID TABLET (FP) PO SCH (10:00)
[2018-04-29] MEDS: RANITIDINE HCL 150 MG TABLET (FP) PO SCH (10:02)
[2018-04-29] MEDS: TRIAMCINOLONE ACET 0.1% CREAM 15 GM TUBE TP SCH (10:03)
== END 2018-04-29 11:00 | disposition left against medical advice (07) | DRG 770 ==
LOC: YASAS 11:32 → Y3E 11:33
PROVIDERS: ADMIT Psychiatry & Neurology Psychiatry; ATTEND Psychiatry & Neurology Psychiatry
PROC: HZ42ZZZ Group Counseling for Substance Abuse Treatment, Cognitive-Behavioral (ICD-10-PCS; principal; 2018-04-28)
DX: F11.23 Opioid dependence with withdrawal (principal); F10.230 Alcohol dependence with withdrawal, uncomplicated; F17.210 Nicotine dependence, cigarettes, uncomplicated; F31.81 Bipolar II disorder; F31.9 Bipolar disorder, unspecified; F39 Unspecified mood [affective] disorder; F99 Mental disorder, not otherwise specified; F41.9 Anxiety disorder, unspecified; G47.00 Insomnia, unspecified; J45.909 Unspecified asthma, uncomplicated; R63.4 Abnormal weight loss; Z68.23 Body mass index [BMI] 23.0-23.9, adult; Z98.82 Breast implant status

== ENCOUNTER 2018-09-18 11:27 | Inpatient (IN) | payer OTHER ==
[2018-09-18 17:17] VITALS: BMI 22.6
--- NOTE | 2018-09-18 17:32 | HP ---
COWS - Scale Resting Pulse: 1= [place] 81-100 Sweatin= Chills/Flushing Restless Observation: 1= Difficult to Sit Still Pupil Size: 0= Normal to Room Light Bone or Joint Aches: 1= Mild Discomfort Runny Nose/ Eye Tearin= Runny Nose/Eyes GI Upset > 30mins: 1= Stomach Cramp Tremor Observation: 1= Tremor [place], Not Seen Yawning Observation: 0= None Anxiety or Irritability: 2=Irritable/Anxious Goose Flesh Skin: 0=Smooth Skin COWS Score: 10 CIWA Score Nausea/Vomitin Muscle Tremors: 3 Anxiety: 3 Agitation: 3 Paroxysmal Sweats: 3 Orientation: 0-Oriented Tacttile Disturbances: 0-None Auditory Disturbances: 0-None Visual Disturbances: 0-None Headache: 3-Moderate CIWA-Ar Total Score: 18 - Admission Criteria OAS Guidelines: Admission for Medically Managed Detox: Requires at least one of the followin. CIWA greater than 12 2. Seizures within the past 24 hours 3. Delirium tremens within the past 24 hours 4. Hallucinations within the past 24 hours 5. Acute intervention needed for co occurring medical disorder 6. Acute intervention needed for co occurring psychiatric disorder 7. Severe withdrawal that cannot be handled at a lower level of care (continued vomiting, continued diarrhea, abnormal vital signs) requiring intravenous medication and/or fluids 8. Patient presents the following: CIWA greater than 12 Admission Criteria Met: Admission criteria met Admission [facility] Chief Complaint: "I need detox from liquor and oxys" Allergies/Adverse Reactions: Allergies Allergy/AdvReac Type Severity Reaction Status Date / Time No Known Allergies Allergy Verified 01/26/18 16:28 History of Present Illness: 43 y/o female here today requesting detox from alcohol and oxycontin and percocets. Patient is known to this program, last here in April. States she had one episode of withdrawal induced seizures "a while ago". Denies previous or current SI/HI. Denies any medical hx but states she is on seroquel for depression. Others' Prescriptions Patient Name: Kay Montero Date: 1975 Address: [address] [place] [address] Sex: Female Rx Written Rx Dispensed Drug Quantity Days Supply Prescriber Name 08/25/2018 08/25/2018 zolpidem tartrate 10 mg tablet 30 30 PeñaOwen nelson MD 08/19/2018 08/20/2018 methadone hcl 5 mg tablet 6 3 Owen Peña MD 05/12/2018 07/29/2018 zolpidem tartrate 5 mg tablet 30 30 EldefrawiFabby MD 03/08/2018 07/05/2018 zolpidem tartrate 10 mg tablet 30 30 PeñaOwen MD 03/08/2018 06/03/2018 zolpidem tartrate 10 mg tablet 30 30 PeñaOwen MD 04/10/2018 04/20/2018 zolpidem tartrate 5 mg tablet 30 30 EldefrawiFabby MD 03/08/2018 03/08/2018 zolpidem tartrate 10 mg tablet 30 30 PeñaOwen nelson MD 02/06/2018 02/27/2018 zolpidem tartrate 5 mg tablet 30 30 EldefrawiFabby MD 10/13/2017 02/06/2018 zolpidem tartrate 10 mg tablet 30 30 PeñaOwen nelson MD 01/12/2018 01/18/2018 oxycodone-acetaminophen 5-325 mg tab 30 4 LefLam fitzpatrick MD 10/13/2017 01/12/2018 zolpidem tartrate 10 mg tablet 30 30 PeñaOwen nelson MD 10/13/2017 11/30/2017 zolpidem tartrate 10 mg tablet 30 30 PeñaOwen nelson MD 11/14/2017 11/14/2017 zolpidem tartrate 5 mg tablet 30 30 MagdalenaTonya 10/13/2017 10/13/2017 zolpidem tartrate 10 mg tablet 30 30 PeñaOwen nelson MD Exam Limitations: No Limitations - Ebola screening Have you traveled outside of the country in the last 21 days: No (N) Have you had contact with anyone from an Ebola affected area: No Do you have a fever: No - Review of Systems Constitutional: Loss of Appetite, Night Sweats EENT: reports: Nose Congestion Respiratory: reports: No Symptoms reported Cardiac: reports: No Symptoms Reported GI: reports: Nausea, Poor Appetite : reports: No Symptoms Reported Musculoskeletal: reports: Back Pain, Joint Pain Integumentary: reports: No Symptoms Reported Neuro: reports: Headache Endocrine: reports: No Symptoms Reported Hematology: reports: No Symptoms Reported Psychiatric: reports: Mood/Affect Appropiate, Orientated x3 Other Systems: Reviewed and Negative Patient History - Patient Medical History Hx Anemia: No Hx Asthma: Yes (On albuterol) Hx Chronic Obstructive Pulmonary Disease (COPD): No Hx Cancer: No Hx Cardiac Disorders: No Hx Congestive Heart Failure: No Hx Hypertension: No Hx Hypercholesterolemia: No Hx Pacemaker: No HX Cerebrovascular Accident: No Hx Seizures: No Hx Dementia: No Hx Diabetes: No Hx Gastrointestinal Disorders: No Hx Liver Disease: No Hx Genitourinary Disorders: No Hx Sexually Transmitted Disorders: No Hx Renal Disease (ESRD): No Hx Thyroid Disease: No Hx Human Immunodeficiency Virus (HIV): No (Negative 2017) Hx Hepatitis C: No Hx Depression: Yes (On ambien, seroquel) Hx Suicide Attempt: No Hx Bipolar Disorder: Yes Hx Schizophrenia: No - Patient Surgical History Past Surgical History: Yes Hx Neurologic Surgery: No Hx Cataract Extraction: No Hx Cardiac Surgery: No Hx Lung Surgery: No Hx Breast Surgery: Yes (bilateral augmentation, 04/2017/bilateral lift, 01/19/2018 ) Hx Breast Biopsy: No Hx Abdominal Surgery: No Hx Appendectomy: No Hx Cholecystectomy: No Hx Genitourinary Surgery: No Hx Section: No Hx Orthopedic Surgery: No Hx Hysterectomy: No Other Surgical History: ectopic Anesthesia Reaction: No - PPD History Previous Implant?: Yes Documented Results: Negative w/proof Implanted On Prior R Admission?: Yes Date: 08/15/17 Results: 0mm PPD to be Administered?: Yes - Reproductive History Patient is a Female of Child Bearing Age (11 -55 yrs old): Yes Last Menstrual Period: 04/13/18 Patient : No - Smoking Cessation Smoking history: Current every day smoker Have you smoked in the past 12 months: Yes Aproximately how many cigarettes per day: 5 Hx Chewing Tobacco Use: No Initiated information on smoking cessation: Yes 'Breaking Loose' booklet given: 09/18/18 - Substance & Tx. History Hx Alcohol Use: Yes Hx Substance Use: Yes Substance Use Type: Alcohol, Opiates Hx Substance Use Treatment: Yes - Substances abused Other Other (specify): Oxycodone Substance route: Oral Frequency: Daily Amount used: 4 - 5 tabs Age of first use: 39 Date of last use: 09/18/18 Cocaine Substance route: Inhalation Frequency: 1-3 times last 30 days Amount used: $10.00 Age of first use: 43 Date of last use: 09/14/18 Alcohol Substance route: Oral Frequency: 3-6 times per week Amount used: 1 6pk/day Age of first use: 17 Date of last use: 09/18/18 Family Disease History - Family Disease History Family Disease History: CA: Sister (Colon - ), Other: Father (h/o suicide or od, heroin) Admission Physical Exam [facility] - Vital Signs Vital Signs: Vital Signs - 24 hr 09/18/18 09/18/18 15:05 17:16 Temperature 97.5 F L 97.5 F L Pulse Rate 86 86 Respiratory 18 18 Rate Blood Pressure 129/91 129/91 Cleared for Admission [facility] - Detox or Rehab [facility] Level of Care: Medically Managed Detox Regimen/Protocol: Methadone/Librium Breathalyzer - Breathalyzer Breathalyzer: 0 Urine Drug Screen - Test Device Lot number: [id number] Expiration date: 04/16/20 - Control Is test valid?: Yes - Results Drug screen NEGATIVE: No Urine drug screen results: THC-Marijuana, FROILAN-Cocaine, OXY-Oxycodone, MTD- Methadone, BZO-Benzodiazepines Inpatient Rehab Admission - Rehab Decision to Admit Inpatient rehab admission?: No
[2018-09-18] MEDS ORDERED: MAG HYDROX/AL HYDROX/SIMETH 30 ML UNIT-DOSE CUP PO PRN (18:36)
[2018-09-18] MEDS ORDERED: IBUPROFEN 400 MG TABLET (FP) PO PRN (18:36)
[2018-09-18] MEDS ORDERED: cloNIDine HCL 0.1 MG TABLET PO PRN (18:36)
[2018-09-18] MEDS ORDERED: ONDANSETRON *ODT* 4 MG TABLET SL PRN (18:36)
[2018-09-18] MEDS ORDERED: MENTHOL/PHENOL 1 EACH UD MM PRN (18:36)
[2018-09-18] MEDS ORDERED: MAGNESIUM CITRATE 300 ML BOTTLE PO PRN (18:36)
[2018-09-18] MEDS ORDERED: MAGNESIUM HYDROX 2400MG/30ML ORAL SUSPENSION 30 ML CUP PO PRN (18:36)
[2018-09-18] MEDS ORDERED: ACETAMINOPHEN 325 MG TABLET (FP) PO PRN ×2 (18:36)
[2018-09-18] MEDS ORDERED: BISMUTH SUBSALICYLATE 524 MG/30 ML UD PO PRN (18:36)
[2018-09-18] MEDS ORDERED: chlordiazePOXIDE HCL 25 MG CAPSULE PO SCH (19:21)
[2018-09-18] MEDS: chlordiazePOXIDE HCL 25 MG CAPSULE PO SCH ×2 (19:26→19:27)
[2018-09-18] MEDS ORDERED: chlordiazePOXIDE HCL 25 MG CAPSULE PO ONE ×2 (19:45→23:00)
[2018-09-18] MEDS: NICOTINE 14 MG/24 HOURS TOPICAL PATCH TD SCH (20:12)
[2018-09-18] MEDS: MELATONIN 5 MG TABLETS PO PRN (22:52)
[2018-09-18] MEDS ORDERED: METHADONE HCL 10 MG TABLET (FOR DETOX USE ONLY) PO ONE (23:00)
[2018-09-18] MEDS: THIAMINE HCL 100 MG TABLET (FP) PO SCH (23:26)
[2018-09-19] MEDS: hydrOXYzine PAMOATE 25 MG CAPSULE (FP) PO PRN (01:13)
[2018-09-19] MEDS: chlordiazePOXIDE HCL 10 MG CAPSULE PO PRN ×3 (01:14→17:32)
[2018-09-19] MEDS: METHOCARBAMOL 500 MG TABLET PO PRN ×2 (01:14→22:33)
[2018-09-19] MEDS: chlordiazePOXIDE 5 MG CAPSULE PO SCH ×3 (05:29→22:26)
[2018-09-19] MEDS ORDERED: METHADONE HCL 5 MG TABLET (FOR DETOX USE ONLY) PO ONE (10:00)
[2018-09-19] MEDS: PRENATAL VITAMINS W/ FOLIC ACID TABLET (FP) PO SCH (10:21)
[2018-09-19] MEDS: NICOTINE 14 MG/24 HOURS TOPICAL PATCH TD SCH (10:22)
[2018-09-19 10:55] LABS: HEMATOCRIT 33.5 % (32.4-45.2); HEMOGLOBIN 11.1 GM/dL (10.7-15.3); MCH 31.1 pg (25.7-33.7); MCHC 33.2 g/dl (32.0-36.0); MEAN CELL VOLUME 93.8 fl (80-96); MEAN PLT VOLUME 10.8 fl (7.5-11.1); PLATELET COUNT 194 K/MM3 (134-434); RBC 3.57 M/mm3 (3.60-5.2); RDW 12.8 % (11.6-15.6); WHITE BLOOD COUNT 6.2 K/mm3 (4.0-10.0)
[2018-09-19 11:33] LABS: ALBUMIN 3.1 g/dl (3.4-5.0); ALK PHOS 46 U/L (45-117); ANION GAP 8 MMOL/L (8-16); BILIRUBIN,TOTAL 0.1 mg/dL (0.2-1); BLOOD UREA NITROGEN 16 mg/dL (7-18); CALCIUM 8.3 mg/dL (8.5-10.1); CHLORIDE 104 mmol/L (98-107); CO2 24 mmol/L (21-32); GLUCOSE,RANDOM 89 mg/dL (74-106); POTASSIUM 3.9 mmol/L (3.5-5.1); SGPT/ALT 15 U/L (13-61); SODIUM 136 mmol/L (136-145); TOT PROT 5.7 g/dl (6.4-8.2)
[2018-09-19 13:34] LABS: CREATININE 0.6 mg/dL (0.55-1.3); SGOT/AST 9 U/L (15-37)
--- NOTE | 2018-09-19 17:20 | PN ---
S CIWA - CIWA Score Nausea/Vomitin-Mild Nausea/No Vomiting Muscle Tremors: 4-Moderate,w/Arms Extend Anxiety: 3 Agitation: 3 Paroxysmal Sweats: 3 Orientation: 0-Oriented Tacttile Disturbances: 0-None Auditory Disturbances: 0-None Visual Disturbances: 0-None Headache: 0-None Present CIWA-Ar Total Score: 14 [facility] COWS - Scale Resting Pulse: 0= SC 80 or Below Sweatin= Chills/Flushing Restless Observation: 3= Extraneous Movement Pupil Size: 0= Normal to Room Light Bone or Joint Aches: 2= Severe Diffuse Aches Runny Nose/ Eye Tearin= Runny Nose/Eyes GI Upset > 30mins: 3= Vomiting/Diarrhea Tremor Observation of Outstretched Hands: 2= Slight Tremor Visible Yawning Observation: 0= None Anxiety or Irritability: 0= None Goose Flesh Skin: 0=Smooth Skin COWS Score: 13 S Progress Note (SOAP) Subjective: Tremor, stomach cramps, headache, back pain, interrupted sleep, feels depressed (denies SI, HI; requesting to see Psychiatrist) Objective: 09/19/18 17:19 Last Vital Signs Temp Pulse Resp BP Pulse Ox 97.2 F L 69 16 95/68 09/19/18 14:15 09/19/18 14:15 09/19/18 14:15 09/19/18 14:15 Laboratory Tests 09/19/18 09/19/18 09/19/18 07:50 07:50 07:50 WBC 6.2 RBC 3.57 L Hgb 11.1 Hct 33.5 MCV 93.8 MCH 31.1 MCHC 33.2 RDW 12.8 Plt Count 194 MPV 10.8 Sodium 136 Potassium 3.9 Chloride 104 Carbon Dioxide 24 Anion Gap 8 BUN 16 Creatinine 0.6 Creat Clearance w eGFR 109.11 Random Glucose 89 Calcium 8.3 L Total Bilirubin 0.1 L AST 9 L ALT 15 Alkaline Phosphatase 46 Total Protein 5.7 L Albumin 3.1 L RPR Titer HIV 1&2 Antibody Screen Negative HIV P24 Antigen Negative 09/19/18 07:50 WBC RBC Hgb Hct MCV MCH MCHC RDW Plt Count MPV Sodium Potassium Chloride Carbon Dioxide Anion Gap BUN Creatinine Creat Clearance w eGFR Random Glucose Calcium Total Bilirubin AST ALT Alkaline Phosphatase Total Protein Albumin RPR Titer Nonreactive HIV 1&2 Antibody Screen HIV P24 Antigen Labs reviewed Assessment: 09/19/18 17:20 Withdrawal symptoms Plan: Continue detox Encouraged PO water intake Psychiatrist consult ordered as per patient's request
[2018-09-19] MEDS: THIAMINE HCL 100 MG TABLET (FP) PO SCH (22:27)
[2018-09-19] MEDS: MELATONIN 5 MG TABLETS PO PRN (22:33)
[2018-09-20] MEDS: chlordiazePOXIDE HCL 10 MG CAPSULE PO PRN ×2 (01:56→17:59)
[2018-09-20] MEDS: chlordiazePOXIDE HCL 10 MG CAPSULE PO SCH ×3 (05:05→22:14)
[2018-09-20] MEDS: hydrOXYzine PAMOATE 25 MG CAPSULE (FP) PO PRN (05:09)
[2018-09-20] MEDS: METHOCARBAMOL 500 MG TABLET PO PRN (05:55)
[2018-09-20] MEDS: PRENATAL VITAMINS W/ FOLIC ACID TABLET (FP) PO SCH (09:31)
[2018-09-20] MEDS: NICOTINE 14 MG/24 HOURS TOPICAL PATCH TD SCH (09:32)
[2018-09-20] MEDS ORDERED: METHADONE HCL 10 MG TABLET (FOR DETOX USE ONLY) PO ONE (10:00)
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
[2018-09-20] MEDS ORDERED: SUVOREXANT 10 MG TABLET PO PRN (10:36)
[2018-09-20] MEDS: cloNIDine HCL 0.1 MG TABLET PO PRN ×2 (11:08→17:54)
--- NOTE | 2018-09-20 13:37 | PN ---
[facility] CIWA - CIWA Score Nausea/Vomitin-No Nausea/No Vomiting Muscle Tremors: 2 Anxiety: 2 Agitation: 2 Paroxysmal Sweats: 1-Minimal Palms Moist Orientation: 0-Oriented Tacttile Disturbances: 0-None Auditory Disturbances: 0-None Visual Disturbances: 0-None Headache: 0-None Present CIWA-Ar Total Score: 7 BHS COWS - Scale Resting Pulse: 1= [place] 81-100 Sweatin=Flushed/Facial Moisture Restless Observation: 1= Difficult to Sit Still Pupil Size: 0= Normal to Room Light Bone or Joint Aches: 1= Mild Discomfort Runny Nose/ Eye Tearin= Nasal Congestion GI Upset > 30mins: 0= None Tremor Observation of Outstretched Hands: 1= Tremor [place], Not Seen Yawning Observation: 0= None Anxiety or Irritability: 1=Feels Anxious/Irritable Goose Flesh Skin: 0=Smooth Skin COWS Score: 8 [facility] Progress Note (SOAP) Subjective: sweats shakes interrupted sleep anxiety Objective: 09/20/18 13:37 Vital Signs Temperature 98.2 F 09/20/18 09:32 Pulse Rate 88 09/20/18 09:32 Respiratory Rate 18 09/20/18 09:32 Blood Pressure 102/66 09/20/18 09:32 O2 Sat by Pulse Oximetry (%) [id number] ambulating no acute distress Assessment: 09/20/18 13:37 mild withdrawal sx Plan: continue detox increase fluids d/c in am
[2018-09-20] MEDS ORDERED: QUEtiapine FUMARATE 50 MG TABLET PO SCH (22:00)
[2018-09-20] MEDS: THIAMINE HCL 100 MG TABLET (FP) PO SCH (22:14)
[2018-09-21] MEDS: chlordiazePOXIDE HCL 10 MG CAPSULE PO PRN (03:07)
[2018-09-21] MEDS: METHOCARBAMOL 500 MG TABLET PO PRN (03:08)
[2018-09-21] MEDS: hydrOXYzine PAMOATE 25 MG CAPSULE (FP) PO PRN (03:10)
[2018-09-21] MEDS ORDERED: METHADONE HCL 5 MG TABLET (FOR DETOX USE ONLY) PO ONE (06:00)
[2018-09-21] MEDS: chlordiazePOXIDE HCL 10 MG CAPSULE PO SCH (06:24)
--- NOTE | 2018-09-21 09:01 | DS ---
[facility] Detox Discharge Summary Admission Date: 09/18/18 Discharge Date: 09/21/18 - History Present History: Alcohol Dependence, Cocaine Dependence, Opioid Dependence - Physical Exam Results Vital Signs: Vital Signs Temperature 98.1 F 09/21/18 08:27 Pulse Rate 79 09/21/18 08:27 Respiratory Rate 16 09/21/18 08:27 Blood Pressure 104/74 09/21/18 08:27 O2 Sat by Pulse Oximetry (%) - Treatment Hospital Course: Detox Protocol Followed, Detoxed Safely, Responded well, Discharged Condition Good, Rehab Referral Accepted - Medication Discharge Medications: Ambulatory Orders Quetiapine Fumarate [Seroquel -] 50 mg PO HS #30 tablet 04/26/18 Calcium 250Mg/Vit-D 125 Units [Oscal 250 mg+D -] 1 combo PO BID 04/28/18 Ranitidine [Zantac -] 150 mg PO BID #60 tablet 09/21/18 - Diagnosis (1) Cocaine abuse Current Visit: Yes Status: Chronic (2) Mood disorder Current Visit: Yes Status: Chronic (3) Bipolar II disorder Current Visit: Yes Status: Ruled-out (4) Insomnia Current Visit: No Status: Acute Qualifiers: (5) Mood disorder Current Visit: No Status: Acute (6) Opioid dependence with withdrawal Current Visit: Yes Status: Chronic (7) Psychiatric disorder Current Visit: No Status: Acute (8) Uncomplicated alcohol withdrawal Current Visit: Yes Status: Acute (9) Weight loss Current Visit: No Status: Acute (10) Anxiety disorder Current Visit: No Status: Chronic Qualifiers: (11) Asthma Current Visit: Yes Status: Chronic Qualifiers: Asthma severity: mild Asthma persistence: unspecified Asthma complication type: unspecified Qualified Code(s): J45.909 - Unspecified asthma , uncomplicated (12) Depression Current Visit: Yes Status: Chronic Qualifiers: Depression Type: unspecified Qualified Code(s): F32.9 - Major depressive disorder, single episode, unspecified (13) H/O bilateral breast implants Current Visit: No Status: Chronic (14) Nicotine dependence Current Visit: Yes Status: Chronic Qualifiers: Nicotine product type: cigarettes Substance use status: uncomplicated Qualified Code(s): F17.210 - Nicotine dependence, cigarettes, uncomplicated (15) Bipolar II disorder Current Visit: Yes Status: Chronic - AMA Did Patient Leave Against Medical Advice: No (referred to outpatient rehab)
[2018-09-21 09:11] VITALS: BP 142/102; PULSE 89; TEMP 98.2
== END 2018-09-21 09:05 | disposition home or self-care (01) | DRG 773 ==
LOC: YASAS 11:27 → Y6N 18:10
PROVIDERS: ADMIT Surgery; ATTEND Surgery
PROC: HZ2ZZZZ Detoxification Services for Substance Abuse Treatment (ICD-10-PCS; principal; 2018-09-18)
DX: F11.23 Opioid dependence with withdrawal (principal); F10.230 Alcohol dependence with withdrawal, uncomplicated; F14.20 Cocaine dependence, uncomplicated; F17.210 Nicotine dependence, cigarettes, uncomplicated; F31.81 Bipolar II disorder; F39 Unspecified mood [affective] disorder; F41.9 Anxiety disorder, unspecified; F99 Mental disorder, not otherwise specified; G47.00 Insomnia, unspecified; J45.909 Unspecified asthma, uncomplicated; R63.4 Abnormal weight loss; Z68.23 Body mass index [BMI] 23.0-23.9, adult; Z98.82 Breast implant status
CPT/HCPCS: 36415; 80053; 85027; 86593; 87389; J0735

== ENCOUNTER 2021-02-28 11:04 | Inpatient (IN) | payer OTHER ==
[2021-02-28 11:51] VITALS: BMI 18.4
[2021-02-28] MEDS ORDERED: cloNIDine HCL 0.1 MG TABLET PO PRN (12:47)
[2021-02-28] MEDS ORDERED: ACETAMINOPHEN 325 MG TABLET (FP) PO PRN ×2 (12:47)
[2021-02-28] MEDS ORDERED: NICOTINE 10 MG CARTRIDGE (INHALER) IH PRN (12:47)
[2021-02-28] MEDS ORDERED: MENTHOL/PHENOL 1 EACH UD MM PRN (12:47)
[2021-02-28] MEDS ORDERED: MAG HYDROX/AL HYDROX/SIMETH 30 ML UNIT-DOSE CUP PO PRN (12:47)
[2021-02-28] MEDS ORDERED: ONDANSETRON *ODT* 4 MG TABLET SL PRN (12:47)
[2021-02-28] MEDS ORDERED: methaDONE HCL 10 MG TABLET (FOR DETOX USE ONLY) PO ONE (12:47)
[2021-02-28] MEDS ORDERED: MAGNESIUM CITRATE 300 ML BOTTLE PO PRN (12:47)
[2021-02-28] MEDS ORDERED: BISMUTH SUBSALICYLATE 262 MG/15 ML BTL PO PRN (12:47)
[2021-02-28] MEDS: hydrOXYzine PAMOATE 25 MG CAPSULE (FP) PO SCH ×3 (13:35→22:53)
[2021-02-28] MEDS: diazePAM 5 MG TABLET PO SCH ×4 (13:39→22:53)
[2021-02-28] MEDS ORDERED: QUEtiapine FUMARATE 50 MG TABLET PO SCH (22:00)
[2021-02-28] MEDS ORDERED: MELATONIN 5 MG TABLETS PO SCH (22:00)
[2021-02-28] MEDS: THIAMINE HCL 100 MG TABLET (FP) PO SCH (22:53)
[2021-03-01] MEDS: METHOCARBAMOL 500 MG TABLET PO PRN ×2 (02:46→09:23)
[2021-03-01] MEDS: diazePAM 5 MG TABLET PO SCH ×3 (05:18→22:27)
[2021-03-01] MEDS: hydrOXYzine PAMOATE 25 MG CAPSULE (FP) PO SCH ×5 (05:18→22:26)
[2021-03-01] MEDS ORDERED: MASKS NR ONE (08:37)
[2021-03-01] MEDS ORDERED: methaDONE HCL 10 MG TABLET (FOR DETOX USE ONLY) ONE (09:21)
[2021-03-01] MEDS: diazePAM 5 MG TABLET PO PRN (09:24)
[2021-03-01] MEDS: PRENATAL VITAMINS W/ FOLIC ACID TABLET (FP) PO SCH (09:25)
[2021-03-01 10:22] LABS: HEMATOCRIT 35.6 % (32.4-45.2); HEMOGLOBIN 12.1 GM/dL (10.7-15.3); MCH 32.5 pg (25.7-33.7); MEAN CELL VOLUME 95.4 fl (80-96); MEAN PLT VOLUME 9.8 fl (7.5-11.1); PLATELET COUNT 237 10^3/uL (134-434); RBC 3.73 M/mm3 (3.60-5.2); WHITE BLOOD COUNT 6.8 K/mm3 (4.0-10.0)
[2021-03-01 11:38] LABS: BLOOD UREA NITROGEN 21.4 mg/dL (7-18)
[2021-03-01 11:42] LABS: CALCIUM 8.1 mg/dL (8.5-10.1); CREATININE 0.5 mg/dL (0.55-1.3)
[2021-03-01 11:44] LABS: BILIRUBIN,TOTAL 0.1 mg/dL (0.2-1); TOT PROT 6.2 g/dl (6.4-8.2)
[2021-03-01 12:02] LABS: HIV INTERPRETATION NEGATIVE (NEGATIVE)
[2021-03-01] MEDS: THIAMINE HCL 100 MG TABLET (FP) PO SCH (22:26)
[2021-03-02] MEDS: SUVOREXANT 10 MG TABLET PO PRN ×2 (00:42→22:45)
[2021-03-02] MEDS: METHOCARBAMOL 500 MG TABLET PO PRN ×3 (00:42→17:24)
[2021-03-02] MEDS: IBUPROFEN 400 MG TABLET (FP) PO PRN ×2 (00:42→12:49)
[2021-03-02] MEDS: hydrOXYzine PAMOATE 25 MG CAPSULE (FP) PO SCH ×5 (05:51→22:41)
[2021-03-02] MEDS: diazePAM 5 MG TABLET PO SCH ×2 (05:52→17:19)
[2021-03-02] MEDS: diazePAM 5 MG TABLET PO PRN ×2 (09:43→16:05)
[2021-03-02] MEDS: PRENATAL VITAMINS W/ FOLIC ACID TABLET (FP) PO SCH (09:44)
[2021-03-02] MEDS ORDERED: methaDONE HCL 10 MG TABLET (FOR DETOX USE ONLY) PO ONE (10:00)
[2021-03-02] MEDS: MAGNESIUM HYDROX 2400MG/30ML ORAL SUSPENSION 30 ML CUP PO PRN (13:25)
[2021-03-02] MEDS: THIAMINE HCL 100 MG TABLET (FP) PO SCH (22:41)
[2021-03-03] MEDS: MAGNESIUM HYDROX 2400MG/30ML ORAL SUSPENSION 30 ML CUP PO PRN (00:59)
[2021-03-03] MEDS ORDERED: PANTOPRAZOLE 20 MG TABLET PO ONE (02:08)
[2021-03-03] MEDS: diazePAM 5 MG TABLET PO PRN (02:28)
[2021-03-03] MEDS: METHOCARBAMOL 500 MG TABLET PO PRN (02:29)
[2021-03-03] MEDS: hydrOXYzine PAMOATE 25 MG CAPSULE (FP) PO SCH (05:19)
[2021-03-03] MEDS ORDERED: diazePAM 5 MG TABLET PO ONE (06:00)
[2021-03-03 07:03] VITALS: BP 101/73; PULSE 85; TEMP 97.7
[2021-03-03] MEDS ORDERED: methaDONE HCL 10 MG TABLET (FOR DETOX USE ONLY) ONE (09:36)
[2021-03-04] MEDS ORDERED: methaDONE HCL 10 MG TABLET (FOR DETOX USE ONLY) PO ONE (10:00)
[2021-03-04] MEDS ORDERED: PANTOPRAZOLE 20 MG TABLET PO SCH (10:00)
== END 2021-03-03 10:06 | disposition left against medical advice (07) | DRG 770 ==
LOC: YASAS 11:04 → Y6N 11:44
PROVIDERS: ADMIT Allergy & Immunology; ATTEND Allergy & Immunology
PROC: HZ2ZZZZ Detoxification Services for Substance Abuse Treatment (ICD-10-PCS; principal; 2021-02-28)
DX: F11.23 Opioid dependence with withdrawal (principal); F10.230 Alcohol dependence with withdrawal, uncomplicated; F14.10 Cocaine abuse, uncomplicated; F32.9 Major depressive disorder, single episode, unspecified; F19.24 Other psychoactive substance dependence with psychoactive substance-induced mood disorder; F19.280 Other psychoactive substance dependence with psychoactive substance-induced anxiety disorder; F19.282 Other psychoactive substance dependence with psychoactive substance-induced sleep disorder; J45.909 Unspecified asthma, uncomplicated; Z87.59 Personal history of other complications of pregnancy, childbirth and the puerperium; Z98.82 Breast implant status; Z56.0 Unemployment, unspecified
CPT/HCPCS: 36415; 80053; 81025; 85027; 86780; 87389; 93005; 93010; C9803; J0735; U0003; U0005